=== PATIENT | female | born 1955 | race Caucasian/White ===

== ENCOUNTER 2018-10-24 17:13 | Inpatient (IN) | payer MEDICARE ==
--- NOTE | 2018-10-24 18:20 | ED Physician Chart ---
ED Chief Complaint/HPI - Patient Information Date Seen:: 10/24/18 Time Seen:: 18:00 Chief Complaint:: disruptive long term potential danger History of Present Illness:: last couple days Allergies:: Allergies Allergy/AdvReac Type Severity Reaction Status Date / Time No Known Allergies Allergy Verified 10/24/18 17:49 Vitals:: Vital Signs - 8 hr 10/24/18 17:56 Temp 97.3 F HR 100 RR 18 BP 163/101 O2 Sat % 99 Historian:: Medical Records Review:: Transfer documents Reviewed ED Review of Systems - Review of Systems General/Constitutional: No fever (unreliable ros) ED Past Medical History - Past Medical History Past Medical History: HTN (schizophrenia), Other ED Physical Exam - Physical Examination General/Constitutional: No distress, Ambulatory Head: Atraumatic Eyes: Lids, conjuctiva normal Skin: Nl inspection ENMT: External ears, nose nl Neck: Nontender Respiratory: Nl effort/Exclusion Cardio Vascular: RRR GI: No tenderness/rebounding/guarding Extremities: No tenderness or effusion Neuro/Psych: Alert/oriented Misc: Normal back ED Assessment - Assessment General Assessment: atypical chest pain ED Septic Shock - . Is Septic Shock (SBP<90, OR Lactate>4 mmol\L) present?: No - <6hrs of presentation: Vital Signs: Vital Signs - 8 hr 10/24/18 17:56 Temp 97.3 F HR 100 RR 18 BP 163/101 O2 Sat % 99 ED Reassessment (Disposition) - Patient Disposition Discharge/Transfer:: Acute Care w/in this hosp (needs psych eval and adjustment)
[2018-10-24 18:30] LABS: % BASOPHILS 4.5 % (0.0-2.0); % EOSINOPHILS 1.7 % (0.0-5.0); % LYMPHOCYTES 24.8 % (20.0-50.0); % MONOCYTES 1.5 % (2.0-10.0); % NEUTROPHILS 67.5 % (40.0-80.0); BASOPHILE ABSOLUTE 0.3 Th/cumm (0-0.2); EOSINOPHILE ABSOLUTE 0.1 Th/cmm (0.1-0.4); HEMATOCRIT 42.7 % (41.0-60); HEMOGLOBIN 14.2 gm/dL (12-16); LYMPHOCYTE ABSOLUTE 1.8 Th/cmm (1.5-3.0); MEAN CELL VOLUME 90.6 fl (81-100); MEAN CORPUSCULAR HEMOGLOBIN 30.2 pg (27.0-31.0); MEAN CORPUSCULAR HGB CONC 33.4 pg (28.0-36.0); MONOCYTE ABSOLUTE 0.1 Th/cmm (0.3-1.0); NEUTROPHILE ABSOLUTE 4.9 Th/cmm (1.8-8.0); PLATELET COUNT 157 Th/cmm (150-400); RED BLOOD COUNT 4.71 Mil/cmm (3.80-5.20); RED CELL DISTRIBUTION WIDTH 12.6 % (11.5-20.0); WHITE BLOOD COUNT 7.2 Th/cmm (4.8-10.8)
[2018-10-24 18:48] LABS: ALB/GLOB RATIO 1.7 (1.0-1.8); ALBUMIN 4.1 gm/dL (3.7-5.3); ALKALINE PHOSPHATASE 44 U/L (34-104); ANION GAP 13.6 (7.0-16.0); BILIRUBIN,TOTAL 0.2 mg/dL (0.3-1.0); BUN - UREA NITROGEN 24 mg/dL (7-25); CALCIUM SERUM 9.9 mg/dL (8.6-10.3); CARBON DIOXIDE 25.4 mEq/L (21.0-31.0); CHLORIDE 103 mEq/L (98-107); CREATININE - SERUM 0.9 mg/dL (0.6-1.2); GFR AFRICAN-AMERICAN > 60.0 ml/min (>90); GFR NON AFRICAN-AMERICAN > 60.0 ml/min; GLUCOSE 150 mg/dL (70-105); SGOT 14 U/L (13-39); SGPT/ALT 10 U/L (7-52); SODIUM SERUM 138 mEq/L (136-145); TOTAL PROTEIN,SERUM 6.5 gm/dL (6.0-8.3)
[2018-10-24 20:59] VITALS: BP 161/83
[2018-10-24] MEDS ORDERED: Magnesium Hydroxide (MOM) 30 mL UDC PO PRN (20:59)
[2018-10-24 21:20] LABS: CHOLESTEROL 208 mg/dL (<200); HDL -HIGH DENSITY LIPOPROTEIN 82 mg/dL (23-92); TRIGLYCERIDES 108 mg/dL (<150)
--- NOTE | 2018-10-24 21:32 | History & Physical ---
ADMIT DATE: 10/24/2018 HISTORY OF PRESENT ILLNESS: The patient is a 63-year-old female with long history of hypertension, degenerative joint disease, dementia, and psychosis, admitted to [facility] under Dr. Rayo's service for evaluation and treatment. The patient is a poor historian. No fever, no chills, no chest pain, no shortness of breath. No cough. PAST MEDICAL HISTORY: Significant for hypertension, degenerative joint disease, dementia, and psychosis. PAST SURGICAL HISTORY: No recent surgery. ALLERGIES: None. MEDICATIONS: Follow admission reconciliation. SOCIAL HISTORY: No smoking, no alcohol, no drug. FAMILY HISTORY: Noncontributory. REVIEW OF SYSTEMS: RENAL SYSTEM: No history of chronic renal disorder. CARDIOVASCULAR SYSTEM: She has history of hypertension. ENDOCRINE SYSTEM: No diabetes or thyroid problem. GASTROINTESTINAL SYSTEM: No upper or lower gastrointestinal bleed. NEUROLOGICAL SYSTEM: Seizure disorder. SKELETOMUSCULAR SYSTEM: No muscular dystrophy. HEMATOLOGICAL SYSTEM: No bleeding tendencies. RESPIRATORY SYSTEM: No asthma. GENITOURINARY: No dysuria or hematuria. PHYSICAL EXAMINATION: GENERAL: She is awake, not coherent. VITAL SIGNS: Temperature 98.3, heart rate 86, blood pressure 161/83. HEENT: Normocephalic. Pupils are reactive to light and accommodation. Sclerae clear. NECK: Supple. Negative for lymphadenopathy, JVD or bruit. CHEST: Entry of the air bilaterally normal. No rhonchi or wheezing. HEART: S1, S2 normal. ABDOMEN: Soft, bowel sounds positive. EXTREMITIES: No edema. NEUROLOGIC: He is awake, alert, not fully oriented. No focal muscle deficits. LABORATORY DATA: White blood 7.2, hemoglobin 14.2, hematocrit 42.7, platelets 157. Sodium 138, potassium 4, BUN 24, creatinine 0.9. ASSESSMENT: 1. Hypertension. 2. Degenerative joint disease. 3. Dementia. 4. Insomnia. 5. Psychosis. PLAN: The patient is in the hospital under Dr. Rayo's service. Medical problem addressed during hospitalization is psychosis. Medical problems addressed at discharge are hypertension, history of degenerative joint disease. The patient is medically stable for activity. Thank you, Dr. Rayo for asking me to see your patient. The patient is a full code. JOB# [id number]
[2018-10-25 08:07] LABS: A1C 5.5 % (4.8-5.6)
--- NOTE | 2018-10-25 14:43 | History & Physical ---
ADMIT DATE: 10/24/2018 IDENTIFYING INFORMATION: The patient is a 63-year-old female. CHIEF COMPLAINT: "Get out of here." HISTORY OF PRESENT ILLNESS: The patient with long history of bipolar disorder, dementia, psychosis. The patient was a poor historian. When I talked to her, she does not know her age, she believes she was 62. She reports she has been for a long time. Unable to give information and then out of nowhere asked me to leave. The patient apparently has been trying to leave the place. She reported to the staff. She was hearing voices, telling her to leave. PAST PSYCHIATRIC HISTORY: History of bipolar disorder, dementia, psychosis. MEDICAL HISTORY: Hypertension, degenerative joint disease. ALLERGIES: The patient has no known drug allergy. MEDICATIONS: She has been on Depakote 500 mg twice a day, Neurontin 100 mg 3 times a day, Seroquel 300 mg twice a day. FAMILY AND SOCIAL HISTORY: The patient reports that she has been for a long time. First, she told me she has two children. She said she has no kids. She is not a reliable historian. Unable to tell me how far she went to school, what she did for living. MENTAL STATUS EXAMINATION: The patient is appropriately dressed, not very well groomed. She was uncooperative, confused. She believes she is 62 and in reality she is 63. She was unable to tell me the date, where she is, why she is here. Her long-term memory is poor, she cannot remember her age. Short-term is poor, does not know why she is here, unable to answer questions appropriately, all of suddenly went to the bathroom and asked me to get out of here. Staff report that she told them she was hearing voices, telling her to leave. Her insight about her illness is poor, does not realize she has a problem. Judgment is poor with her psychotic behavior. IMPRESSION: Bipolar disorder with psychosis; dementia. MEDICAL DIAGNOSES: As per medical doctor. Her asset, accepting treatment. Negative poor coping skills. INITIAL TREATMENT PLAN: The patient will be continued on medication, adjust medication as needed. We will do group therapy, milieu therapy, and individual therapy. ESTIMATED LENGTH OF STAY: 3-7 days. DISCHARGE CRITERIA: Feeling better, no longer acting out. After discharge, outpatient treatment. [facility]# [id number]
--- NOTE | 2018-10-25 21:56 | Internal Medicine Prog Note ---
Internal Medicine Subjective - Subjective Service Date: 10/25/18 Patient seen and examined:: with staff (SHE IS CONFUSED) Patient is:: awake, non-verbal, in bed, confused Per staff patient has:: no adverse event Internal Medicine Objective - Results Result Diagrams: 10/24/18 18:24 10/24/18 18:24 Recent Labs: Laboratory Last Values WBC 7.2 Th/cmm (4.8-10.8) 10/24/18 18:24 RBC 4.71 Mil/cmm (3.80-5.20) 10/24/18 18:24 Hgb 14.2 gm/dL (12-16) 10/24/18 18:24 Hct 42.7 % (41.0-60) 10/24/18 18: MCV 90.6 fl (81-100) 10/24/18 18:24 MCH 30.2 pg (27.0-31.0) 10/24/18 18: MCHC Differential 33.4 pg (28.0-36.0) 10/24/18 18: RDW 12.6 % (11.5-20.0) 10/24/18 18:24 Plt Count 157 Th/cmm (150-400) 10/24/18 18:24 MPV 8.1 fl 10/24/18 18:24 Neutrophils % 67.5 % (40.0-80.0) 10/24/18 18:24 Lymphocytes % 24.8 % (20.0-50.0) 10/24/18 18: Monocytes % 1.5 % (2.0-10.0) L 10/24/18 18:24 Eosinophils % 1.7 % (0.0-5.0) 10/24/18 18:24 Basophils % 4.5 % (0.0-2.0) H 10/24/18 18:24 Sodium 138 mEq/L (136-145) 10/24/18 18:24 Potassium 4.0 mEq/L (3.5-5.1) 10/24/18 18:24 Chloride 103 mEq/L (98-107) 10/24/18 18:24 Carbon Dioxide 25.4 mEq/L (21.0-31.0) 10/24/18 18:24 Anion Gap 13.6 (7.0-16.0) 10/24/18 18:24 BUN 24 mg/dL (7-25) 10/24/18 18:24 Creatinine 0.9 mg/dL (0.6-1.2) 10/24/18 18:24 Est GFR ( Amer) > 60.0 ml/min (>90) 10/24/18 18:24 Est GFR (Non-Af Amer) > 60.0 ml/min 10/24/18 18:24 BUN/Creatinine Ratio 26.7 10/24/18 18:24 Glucose 150 mg/dL (70-105) H 10/24/18 18:24 Calcium 9.9 mg/dL (8.6-10.3) 10/24/18 18:24 Total Bilirubin 0.2 mg/dL (0.3-1.0) L 10/24/18 18:24 AST 14 U/L (13-39) 10/24/18 18:24 ALT 10 U/L (7-52) 10/24/18 18:24 Alkaline Phosphatase 44 U/L (34-104) 10/24/18 18:24 Total Protein 6.5 gm/dL (6.0-8.3) 10/24/18 18:24 Albumin 4.1 gm/dL (3.7-5.3) 10/24/18 18:24 Globulin 2.4 gm/dL 10/24/18 18:24 Albumin/Globulin Ratio 1.7 (1.0-1.8) 10/24/18 18:24 Triglycerides 108 mg/dL (<150) 10/24/18 18:24 Cholesterol 208 mg/dL (<200) H 10/24/18 18:24 LDL Cholesterol Direct 96 mg/dL (75-193) 10/24/18 18:24 HDL Cholesterol 82 mg/dL (23-92) 10/24/18 18:24 - Physical Exam Vitals and I&O: Vital Signs Temp 97.8 F 10/25/18 14:00 Pulse 55 10/25/18 14:00 Resp 18 10/25/18 14:00 BP 105/65 10/25/18 14:00 Pulse Ox 95 10/25/18 14:00 Intake & Output 10/25/18 10/25/18 10/26/18 06:59 18:59 06:59 Intake Total 240 240 Output Total 2 Balance 240 238 Intake: Oral 240 240 Output: Urine 2 Other: # Voids 1 Active Medications: Current Medications Acetaminophen (Tylenol) 650 mg PO Q4HR PRN PRN Reason: Mild Pain / Temp above 100 Stop: 12/23/18 20:58 Divalproex Sodium (Depakote Er) 500 mg PO BID [facility]; Protocol Stop: 12/24/18 08:59 Last Admin: 10/25/18 16:45 Dose: 500 mg Gabapentin (Neurontin) 100 mg PO TID [facility] Stop: 12/24/18 08:59 Last Admin: 10/25/18 21:30 Dose: 100 mg Lisinopril (Zestril) 5 mg PO DAILY [facility] Stop: 12/24/18 08:59 Last Admin: 10/25/18 08:54 Dose: 5 mg Lorazepam (Ativan) 0.5 mg PO Q4HR PRN; Protocol PRN Reason: Anxiety Stop: 11/23/18 19:59 Magnesium Hydroxide (Milk Of Magnesia) 30 ml PO HS PRN PRN Reason: Constipation Quetiapine Fumarate (Seroquel) 300 mg PO BID [facility]; Protocol Stop: 12/24/18 08:59 Last Admin: 10/25/18 16:45 Dose: 300 mg Temazepam (Restoril) 15 mg PO HS [facility]; Protocol Stop: 12/24/18 20:59 Last Admin: 10/25/18 21:29 Dose: 15 mg General: demented HEENT: NC/AT, PERRLA, EOMI, anicteric sclerae, throat clear Neck: Supple, No JVD, No thyromegaly, +2 carotid pulse wo bruit Lungs: CTAB Abdomen: soft, non-tender, non-distended Extremities: clear Neurological: no change Internal Medicine Assmt/Plan - Assessment Assessment: 1.HTN. 2.DJD. 3.INSOMNIA. 4.PSYCHOSIS - Plan Plan: CONTINUE ON CURRENT MEDICATION AND DIET
--- NOTE | 2018-10-26 09:17 | Internal Medicine Prog Note ---
Internal Medicine Subjective - Subjective Service Date: 10/26/18 Patient seen and examined:: with staff (SHE IS CONFUSED AND AGITATED SOME TIMES) Patient is:: awake, non-verbal, in bed, confused Per staff patient has:: no adverse event Internal Medicine Objective - Results Result Diagrams: 10/24/18 18:24 10/24/18 18:24 Recent Labs: Laboratory Last Values WBC 7.2 Th/cmm (4.8-10.8) 10/24/18 18:24 RBC 4.71 Mil/cmm (3.80-5.20) 10/24/18 18:24 Hgb 14.2 gm/dL (12-16) 10/24/18 18:24 Hct 42.7 % (41.0-60) 10/24/18 18:24 MCV 90.6 fl (81-100) 10/24/18 18:24 MCH 30.2 pg (27.0-31.0) 10/24/18 18: MCHC Differential 33.4 pg (28.0-36.0) 10/24/18 18:24 RDW 12.6 % (11.5-20.0) 10/24/18 18:24 Plt Count 157 Th/cmm (150-400) 10/24/18 18:24 MPV 8.1 fl 10/24/18 18:24 Neutrophils % 67.5 % (40.0-80.0) 10/24/18 18:24 Lymphocytes % 24.8 % (20.0-50.0) 10/24/18 18: Monocytes % 1.5 % (2.0-10.0) L 10/24/18 18:24 Eosinophils % 1.7 % (0.0-5.0) 10/24/18 18:24 Basophils % 4.5 % (0.0-2.0) H 10/24/18 18:24 Sodium 138 mEq/L (136-145) 10/24/18 18:24 Potassium 4.0 mEq/L (3.5-5.1) 10/24/18 18:24 Chloride 103 mEq/L (98-107) 10/24/18 18:24 Carbon Dioxide 25.4 mEq/L (21.0-31.0) 10/24/18 18:24 Anion Gap 13.6 (7.0-16.0) 10/24/18 18:24 BUN 24 mg/dL (7-25) 10/24/18 18:24 Creatinine 0.9 mg/dL (0.6-1.2) 10/24/18 18:24 Est GFR ( Amer) > 60.0 ml/min (>90) 10/24/18 18:24 Est GFR (Non-Af Amer) > 60.0 ml/min 10/24/18 18:24 BUN/Creatinine Ratio 26.7 10/24/18 18:24 Glucose 150 mg/dL (70-105) H 10/24/18 18:24 Calcium 9.9 mg/dL (8.6-10.3) 10/24/18 18:24 Total Bilirubin 0.2 mg/dL (0.3-1.0) L 10/24/18 18:24 AST 14 U/L (13-39) 10/24/18 18:24 ALT 10 U/L (7-52) 10/24/18 18:24 Alkaline Phosphatase 44 U/L (34-104) 10/24/18 18:24 Total Protein 6.5 gm/dL (6.0-8.3) 10/24/18 18:24 Albumin 4.1 gm/dL (3.7-5.3) 10/24/18 18:24 Globulin 2.4 gm/dL 10/24/18 18:24 Albumin/Globulin Ratio 1.7 (1.0-1.8) 10/24/18 18:24 Triglycerides 108 mg/dL (<150) 10/24/18 18:24 Cholesterol 208 mg/dL (<200) H 10/24/18 18:24 LDL Cholesterol Direct 96 mg/dL (75-193) 10/24/18 18:24 HDL Cholesterol 82 mg/dL (23-92) 10/24/18 18:24 - Physical Exam Vitals and I&O: Vital Signs Temp 97.8 F 10/25/18 14:00 Pulse 55 10/25/18 14:00 Resp 18 10/25/18 14:00 BP 105/65 10/25/18 14:00 Pulse Ox 95 10/25/18 14:00 Intake & Output 10/25/18 10/26/18 10/26/18 18:59 06:59 18:59 Intake Total 480 Output Total 2 Balance 478 Intake: Oral 480 Output: Urine 2 Other: # Voids 2 Active Medications: Current Medications Acetaminophen (Tylenol) 650 mg PO Q4HR PRN PRN Reason: Mild Pain / Temp above 100 Stop: 12/23/18 20:58 Divalproex Sodium (Depakote Er) 500 mg PO BID [facility]; Protocol Stop: 12/24/18 08:59 Last Admin: 10/26/18 08:06 Dose: 500 mg Gabapentin (Neurontin) 100 mg PO TID [facility] Stop: 12/24/18 08:59 Last Admin: 10/26/18 08:06 Dose: 100 mg Lisinopril (Zestril) 5 mg PO DAILY [facility] Stop: 12/24/18 08:59 Last Admin: 10/26/18 08:59 Dose: Not Given Lorazepam (Ativan) 0.5 mg PO Q4HR PRN; Protocol PRN Reason: Anxiety Stop: 11/23/18 19:59 Last Admin: 10/26/18 08:58 Dose: 0.5 mg Magnesium Hydroxide (Milk Of Magnesia) 30 ml PO HS PRN PRN Reason: Constipation Quetiapine Fumarate (Seroquel) 300 mg PO BID [facility]; Protocol Stop: 12/24/18 08:59 Last Admin: 10/26/18 08:06 Dose: 300 mg Temazepam (Restoril) 15 mg PO HS [facility]; Protocol Stop: 12/24/18 20:59 Last Admin: 10/25/18 21:29 Dose: 15 mg General: demented HEENT: NC/AT, PERRLA, EOMI, anicteric sclerae, throat clear Neck: Supple, No JVD, No thyromegaly, +2 carotid pulse wo bruit Lungs: CTAB Abdomen: soft, non-tender, non-distended Extremities: clear Neurological: no change Internal Medicine Assmt/Plan - Assessment Assessment: 1.HTN. 2.DJD. 3.INSOMNIA. 4.PSYCHOSIS - Plan Plan: CONTINUE ON CURRENT MEDICATION AND DIET
--- NOTE | 2018-10-26 16:24 | Progress Notes ---
DATE: 10/26/2018 Case was discussed with staff of the patient, reviewed records. The patient continues to have poor insight. Continues to be unable to make safe plan for self-care, poor historian. Continues to be unpredictable, very irritable, needing redirection, resistant to care. She has been compliant with the medication with no side effects, no sedation, no nausea and no extrapyramidal symptoms. We will continue to work with the patient in group therapy, milieu therapy, adjust the medication as needed. JOB# [id number] VAMSHI
--- NOTE | 2018-10-27 13:41 | Progress Notes ---
DATE: 10/27/2018 Case was discussed with staff of the patient, reviewed records. The patient continues to be confused, rambling speech, unable to make safe plan for self-care, unable to tell me the date, where she is, why she is here, uncooperative at times. She is on a wheelchair. No side effects with the medication, no sedation, no nausea, no extrapyramidal symptoms. We will continue to work with the patient in group therapy, milieu therapy, and adjust medications as needed. [facility]# [id number]
--- NOTE | 2018-10-27 17:28 | Internal Medicine Prog Note ---
Internal Medicine Subjective - Subjective Service Date: 10/27/18 Patient seen and examined:: with staff (SHE IS CONFUSED) Patient is:: awake, non-verbal, in bed, confused Per staff patient has:: no adverse event Internal Medicine Objective - Results Result Diagrams: 10/24/18 18:24 10/24/18 18:24 Recent Labs: Laboratory Last Values WBC 7.2 Th/cmm (4.8-10.8) 10/24/18 18:24 RBC 4.71 Mil/cmm (3.80-5.20) 10/24/18 18:24 Hgb 14.2 gm/dL (12-16) 10/24/18 18:24 Hct 42.7 % (41.0-60) 10/24/18 18: MCV 90.6 fl (81-100) 10/24/18 18:24 MCH 30.2 pg (27.0-31.0) 10/24/18 18: MCHC Differential 33.4 pg (28.0-36.0) 10/24/18 18: RDW 12.6 % (11.5-20.0) 10/24/18 18: Plt Count 157 Th/cmm (150-400) 10/24/18 18:24 MPV 8.1 fl 10/24/18 18:24 Neutrophils % 67.5 % (40.0-80.0) 10/24/18 18:24 Lymphocytes % 24.8 % (20.0-50.0) 10/24/18 18: Monocytes % 1.5 % (2.0-10.0) L 10/24/18 18:24 Eosinophils % 1.7 % (0.0-5.0) 10/24/18 18:24 Basophils % 4.5 % (0.0-2.0) H 10/24/18 18:24 Sodium 138 mEq/L (136-145) 10/24/18 18:24 Potassium 4.0 mEq/L (3.5-5.1) 10/24/18 18:24 Chloride 103 mEq/L (98-107) 10/24/18 18:24 Carbon Dioxide 25.4 mEq/L (21.0-31.0) 10/24/18 18:24 Anion Gap 13.6 (7.0-16.0) 10/24/18 18:24 BUN 24 mg/dL (7-25) 10/24/18 18:24 Creatinine 0.9 mg/dL (0.6-1.2) 10/24/18 18:24 Est GFR ( Amer) > 60.0 ml/min (>90) 10/24/18 18:24 Est GFR (Non-Af Amer) > 60.0 ml/min 10/24/18 18:24 BUN/Creatinine Ratio 26.7 10/24/18 18:24 Glucose 150 mg/dL (70-105) H 10/24/18 18:24 Calcium 9.9 mg/dL (8.6-10.3) 10/24/18 18:24 Total Bilirubin 0.2 mg/dL (0.3-1.0) L 10/24/18 18:24 AST 14 U/L (13-39) 10/24/18 18:24 ALT 10 U/L (7-52) 10/24/18 18:24 Alkaline Phosphatase 44 U/L (34-104) 10/24/18 18:24 Total Protein 6.5 gm/dL (6.0-8.3) 10/24/18 18:24 Albumin 4.1 gm/dL (3.7-5.3) 10/24/18 18:24 Globulin 2.4 gm/dL 10/24/18 18:24 Albumin/Globulin Ratio 1.7 (1.0-1.8) 10/24/18 18:24 Triglycerides 108 mg/dL (<150) 10/24/18 18:24 Cholesterol 208 mg/dL (<200) H 10/24/18 18:24 LDL Cholesterol Direct 96 mg/dL (75-193) 10/24/18 18:24 HDL Cholesterol 82 mg/dL (23-92) 10/24/18 18:24 - Physical Exam Vitals and I&O: Vital Signs Temp 98.0 F 10/27/18 14:00 Pulse 90 10/27/18 14:00 Resp 18 10/27/18 14:00 BP 128/89 10/27/18 14:00 Pulse Ox 97 10/27/18 14:00 Intake & Output 10/26/18 10/27/18 10/27/18 18:59 06:59 18:59 Intake Total 1200 Balance 1200 Intake: Oral 1080 Other 120 Other: # Voids 4 # Bowel Movements 0 Active Medications: Current Medications Acetaminophen (Tylenol) 650 mg PO Q4HR PRN PRN Reason: Mild Pain / Temp above 100 Stop: 12/23/18 20:58 Divalproex Sodium (Depakote Er) 500 mg PO BID [facility]; Protocol Stop: 12/24/18 08:59 Last Admin: 10/27/18 16:37 Dose: 500 mg Gabapentin (Neurontin) 100 mg PO TID [facility] Stop: 12/24/18 08:59 Last Admin: 10/27/18 13:10 Dose: 100 mg Lisinopril (Zestril) 5 mg PO DAILY [facility] Stop: 12/24/18 08:59 Last Admin: 10/27/18 09:58 Dose: 5 mg Lorazepam (Ativan) 0.5 mg PO Q4HR PRN; Protocol PRN Reason: Anxiety Stop: 11/23/18 19:59 Last Admin: 10/26/18 08:58 Dose: 0.5 mg Magnesium Hydroxide (Milk Of Magnesia) 30 ml PO HS PRN PRN Reason: Constipation Quetiapine Fumarate (Seroquel) 300 mg PO BID [facility]; Protocol Stop: 12/24/18 08:59 Last Admin: 10/27/18 16:37 Dose: 300 mg Temazepam (Restoril) 15 mg PO HS [facility]; Protocol Stop: 12/24/18 20:59 Last Admin: 10/26/18 21:08 Dose: 15 mg General: demented HEENT: NC/AT, PERRLA, EOMI, anicteric sclerae, throat clear Neck: Supple, No JVD, No thyromegaly, +2 carotid pulse wo bruit Lungs: CTAB Abdomen: soft, non-tender, non-distended Extremities: clear Neurological: no change Internal Medicine Assmt/Plan - Assessment Assessment: 1.HTN. 2.DJD. 3.INSOMNIA. 4.PSYCHOSIS - Plan Plan: CONTINUE ON CURRENT MEDICATION AND DIET Nutritional Asmnt/Malnutr-PDOC - Dietary Evaluation Malnutrition Findings (Please click <Entered> for more info): Nutritional Asmnt/Malnutrition Start: 10/27/18 14: 37 Text: Status: Complete Freq: Protocol: Document 10/27/18 14:37 YEMUS (Rec: 10/27/18 14:43 THIEN [email or web address] ) Nutritional Asmnt/Malnutrition Patient General Information Nutritional Screening Moderate Risk Diagnosis Psychosis Pertinent Medical Hx/Surgical Hx HTN, Degenerative joint disease, Dementia, Psychosis Subjective Information Pt is a 63[facility]year-old [facility] d/t psychosis. Per Meal/ Nutrition Activity Record, Pt ate 75% meals on 10/26. Per RN, UMANG Delcid relayed message that Pt ate 100% breakfast and lunch today. Pt has no noted HX of DM, will continue to monitor blood glucose level as new labs are performed. May want to consider CCHO diet if glucose level does not trend WNL. HT: 54 WT: 110 LB (50 kg) BMI: 18.88 (Normal) GI: WNL, Flat, Soft, Non- tender BM: Not noted I/O: 1200/Not Noted Skin: WNL, intact Tyron: 22 Diet Order: NA2GM, SYED, Chopped Estimated Energy Needs: ( Geriatric, CBW) 9896-8907 kcals (25-30 kcals/ kg) 50-60 g Pro (1.0-1.2 g/kg) 6080-6135 ml (25-30 ml/kg) Pt is currently eating an estimated 87.5% meals per Meal /Nutrition Activity Record. Dietary is currently providing an estimated 1869 kcals and 75 gm Pro. Per Pt PO intake, this is providing an estimated 1635 kcals and 66 gm Pro, to meet 100% kcal and 100% Pro needs - adequate. Current Diet Order/ Nutrition Support NA2GM, SYED, Chopped Pertinent Medications MOM (PRN) Pertinent Labs 10/24: Glucose 150 Nutritional Hx/Data Height 1.63 m Height (Calculated Centimeters) 162.6 Current Weight (lbs) 49.895 kg Weight (Calculated Kilograms) 49.9 Weight (Calculated Grams) 57735.2 [place] Body Weight 54.7 kg % [place] Body Weight 91 Body Mass Index (BMI) 18.8 Weight Status Approriate GI Symptoms GI Symptoms None Last BM Not noted Skin Integrity/Comment: WNL, intact Tyron: 22 Current %PO Good (75-100%) Estimated Nutritional Goals BEE in Kcals: Using Current wt Calories/Kcals/Kg 25-30 Kcals Calculated 4923-6570 Protein: Using Current wt Protein g/k.0-1.2 Protein Calculated 50-60 Fluid: ml 6723-7515 ml (25-30 ml/kg) Nutritional Problem 1. Problem Problem Altered nutrition related labs Etiology r/t endocrine dysfunction Signs/Symptoms: aeb Glucose 150 Malnutrition Related to Morbid Obesity Malnutrition related to morbid obesity No Intervention/Recommendation Comments 1.Continue with NA2GM, SYED, Chopped diet as ordered. 2.Consider CCHO diet if glucose level does not trend WNL. Expected Outcomes/Goals Expected Outcomes/Goals 1. PO intake to continue to meet 75% of nutritional needs. 2. Monitor PO intake, wt, skin integrity, and nutrition related labs to trend WNL. 3. F/U as low risk in 7 days, 11/03
--- NOTE | 2018-10-28 17:43 | Progress Notes ---
DATE: 10/28/2018 SUBJECTIVE: Case was discussed with staff of the patient, reviewed records. The patient continues to be confused, demented, unable to make safe plan for self-care, unpredictable, impulsive, easily agitated, sleeping better, eating better. No side effects from the medication, no sedation, no nausea, no extrapyramidal symptoms. I will be checking her lab work shows chemistry panel with high blood sugar to low total albumin, high cholesterol and high lipid profile. The rest within normal range. Her CBC showed low monocytes, high basophils. The rest within normal range. No side effects with the medication, no sedation, no nausea, no extrapyramidal symptoms. He was checking his Depakote level. We will continue outpatient group therapy, milieu therapy, and adjust medication as needed. JOB# [id number]
--- NOTE | 2018-10-28 18:48 | Internal Medicine Prog Note ---
Internal Medicine Subjective - Subjective Service Date: 10/28/18 Patient seen and examined:: without staff (SHE IS CONFUSED) Patient is:: awake, non-verbal, in bed, confused Per staff patient has:: no adverse event Internal Medicine Objective - Results Result Diagrams: 10/24/18 18:24 10/24/18 18:24 Recent Labs: Laboratory Last Values WBC 7.2 Th/cmm (4.8-10.8) 10/24/18 18: RBC 4.71 Mil/cmm (3.80-5.20) 10/24/18 18:24 Hgb 14.2 gm/dL (12-16) 10/24/18 18:24 Hct 42.7 % (41.0-60) 10/24/18 18: MCV 90.6 fl (81-100) 10/24/18 18:24 MCH 30.2 pg (27.0-31.0) 10/24/18 18: MCHC Differential 33.4 pg (28.0-36.0) 10/24/18 18: RDW 12.6 % (11.5-20.0) 10/24/18 18: Plt Count 157 Th/cmm (150-400) 10/24/18 18:24 MPV 8.1 fl 10/24/18 18:24 Neutrophils % 67.5 % (40.0-80.0) 10/24/18 18:24 Lymphocytes % 24.8 % (20.0-50.0) 10/24/18 18: Monocytes % 1.5 % (2.0-10.0) L 10/24/18 18: Eosinophils % 1.7 % (0.0-5.0) 10/24/18 18:24 Basophils % 4.5 % (0.0-2.0) H 10/24/18 18:24 Sodium 138 mEq/L (136-145) 10/24/18 18:24 Potassium 4.0 mEq/L (3.5-5.1) 10/24/18 18:24 Chloride 103 mEq/L (98-107) 10/24/18 18:24 Carbon Dioxide 25.4 mEq/L (21.0-31.0) 10/24/18 18:24 Anion Gap 13.6 (7.0-16.0) 10/24/18 18:24 BUN 24 mg/dL (7-25) 10/24/18 18:24 Creatinine 0.9 mg/dL (0.6-1.2) 10/24/18 18:24 Est GFR ( Amer) > 60.0 ml/min (>90) 10/24/18 18:24 Est GFR (Non-Af Amer) > 60.0 ml/min 10/24/18 18:24 BUN/Creatinine Ratio 26.7 10/24/18 18:24 Glucose 150 mg/dL (70-105) H 10/24/18 18:24 Calcium 9.9 mg/dL (8.6-10.3) 10/24/18 18:24 Total Bilirubin 0.2 mg/dL (0.3-1.0) L 10/24/18 18:24 AST 14 U/L (13-39) 10/24/18 18:24 ALT 10 U/L (7-52) 10/24/18 18:24 Alkaline Phosphatase 44 U/L (34-104) 10/24/18 18:24 Total Protein 6.5 gm/dL (6.0-8.3) 10/24/18 18:24 Albumin 4.1 gm/dL (3.7-5.3) 10/24/18 18:24 Globulin 2.4 gm/dL 10/24/18 18:24 Albumin/Globulin Ratio 1.7 (1.0-1.8) 10/24/18 18:24 Triglycerides 108 mg/dL (<150) 10/24/18 18:24 Cholesterol 208 mg/dL (<200) H 10/24/18 18:24 LDL Cholesterol Direct 96 mg/dL (75-193) 10/24/18 18:24 HDL Cholesterol 82 mg/dL (23-92) 10/24/18 18:24 Valproic Acid 89.9 ug/mL (50.0-100.0) 10/28/18 15:05 - Physical Exam Vitals and I&O: Vital Signs Temp 98.0 F 10/28/18 14:00 Pulse 89 10/28/18 14:00 Resp 20 10/28/18 14:00 BP 113/70 10/28/18 14:00 Pulse Ox 97 10/28/18 14:00 Intake & Output 10/27/18 10/28/18 10/28/18 18:59 06:59 18:59 Intake Total 1258 871 5220 Balance 5326 230 5594 Intake: Oral 4708 907 5843 Other: # Voids 3 2 3 # Bowel Movements 0 1 0 Active Medications: Current Medications Acetaminophen (Tylenol) 650 mg PO Q4HR PRN PRN Reason: Mild Pain / Temp above 100 Stop: 12/23/18 20:58 Divalproex Sodium (Depakote Er) 500 mg PO BID [facility]; Protocol Stop: 12/24/18 08:59 Last Admin: 10/28/18 17:23 Dose: 500 mg Gabapentin (Neurontin) 100 mg PO TID [facility] Stop: 12/24/18 08:59 Last Admin: 10/28/18 15:46 Dose: Not Given Lisinopril (Zestril) 5 mg PO DAILY [facility] Stop: 12/24/18 08:59 Last Admin: 10/28/18 08:57 Dose: 5 mg Lorazepam (Ativan) 0.5 mg PO Q4HR PRN; Protocol PRN Reason: Anxiety Stop: 11/23/18 19:59 Last Admin: 10/27/18 21:18 Dose: 0.5 mg Magnesium Hydroxide (Milk Of Magnesia) 30 ml PO HS PRN PRN Reason: Constipation Quetiapine Fumarate (Seroquel) 300 mg PO BID [facility]; Protocol Stop: 12/24/18 08:59 Last Admin: 10/28/18 17:24 Dose: 300 mg Temazepam (Restoril) 15 mg PO HS [facility]; Protocol Stop: 12/24/18 20:59 Last Admin: 10/27/18 21:18 Dose: 15 mg General: demented HEENT: NC/AT, PERRLA, EOMI, anicteric sclerae, throat clear Neck: Supple, No JVD, No thyromegaly, +2 carotid pulse wo bruit Lungs: CTAB Abdomen: soft, non-tender, non-distended Extremities: clear Neurological: no change Internal Medicine Assmt/Plan - Assessment Assessment: 1.HTN. 2.DJD. 3.INSOMNIA. 4.PSYCHOSIS - Plan Plan: CONTINUE ON CURRENT MEDICATION AND DIET Nutritional Asmnt/Malnutr-PDOC - Dietary Evaluation Malnutrition Findings (Please click <Entered> for more info): Nutritional Asmnt/Malnutrition Start: 10/27/18 14: 37 Text: Status: Complete Freq: Protocol: Document 10/27/18 14:37 THIEN (Rec: 10/27/18 14:43 [email or web address] ) Nutritional Asmnt/Malnutrition Patient General Information Nutritional Screening Moderate Risk Diagnosis Psychosis Pertinent Medical Hx/Surgical Hx HTN, Degenerative joint disease, Dementia, Psychosis Subjective Information Pt is a 63-year-old female from retirement admitted on 10/24 d/t psychosis. Per Meal/ Nutrition Activity Record, Pt ate 75% meals on 10/26. Per [facility] relayed message that Pt ate 100% breakfast and lunch today. Pt has no noted HX of DM, will continue to monitor blood glucose level as new labs are performed. May want to consider CCHO diet if glucose level does not trend WNL. HT: 54 WT: 110 LB (50 kg) BMI: 18.88 (Normal) GI: WNL, Flat, Soft, Non- tender BM: Not noted I/O: 1200/Not Noted Skin: WNL, intact Tyron: 22 Diet Order: NA2GM, SYED, Chopped Estimated Energy Needs: ( Geriatric, CBW) 5113-9503 kcals (25-30 kcals/ kg) 50-60 g Pro (1.0-1.2 g/kg) 7219-4347 ml (25-30 ml/kg) Pt is currently eating an estimated 87.5% meals per Meal /Nutrition Activity Record. Dietary is currently providing an estimated 1869 kcals and 75 gm Pro. Per Pt PO intake, this is providing an estimated 1635 kcals and 66 gm Pro, to meet 100% kcal and 100% Pro needs - adequate. Current Diet Order/ Nutrition Support NA2GM, SYED, Chopped Pertinent Medications MOM (PRN) Pertinent Labs 10/24: Glucose 150 Nutritional Hx/Data Height 1.63 m Height (Calculated Centimeters) 162.6 Current Weight (lbs) 49.895 kg Weight (Calculated Kilograms) 49.9 Weight (Calculated Grams) 07685.2 [place] Body Weight 54.7 kg % [place] Body Weight 91 Body Mass Index (BMI) 18.8 Weight Status Approriate GI Symptoms GI Symptoms None Last BM Not noted Skin Integrity/Comment: WNL, intact Tyron: 22 Current %PO Good (75-100%) Estimated Nutritional Goals BEE in Kcals: Using Current wt Calories/Kcals/Kg 25-30 Kcals Calculated 9520-3715 Protein: Using Current wt Protein g/k.0-1.2 Protein Calculated 50-60 Fluid: ml 3736-4840 ml (25-30 ml/kg) Nutritional Problem 1. Problem Problem Altered nutrition related labs Etiology r/t endocrine dysfunction Signs/Symptoms: aeb Glucose 150 Malnutrition Related to Morbid Obesity Malnutrition related to morbid obesity No Intervention/Recommendation Comments 1.Continue with NA2GM, SYED, Chopped diet as ordered. 2.Consider CCHO diet if glucose level does not trend WNL. Expected Outcomes/Goals Expected Outcomes/Goals 1. PO intake to continue to meet 75% of nutritional needs. 2. Monitor PO intake, wt, skin integrity, and nutrition related labs to trend WNL. 3. F/U as low risk in 7 days, 11/03
--- NOTE | 2018-10-29 18:19 | Internal Medicine Prog Note ---
Internal Medicine Subjective - Subjective Service Date: 10/29/18 Patient seen and examined:: with staff (SHE IS BETTER,NOT AGITATED) Patient is:: awake, non-verbal, in bed, confused Per staff patient has:: no adverse event Internal Medicine Objective - Results Result Diagrams: 10/24/18 18:24 10/24/18 18:24 Recent Labs: Laboratory Last Values WBC 7.2 Th/cmm (4.8-10.8) 10/24/18 18: RBC 4.71 Mil/cmm (3.80-5.20) 10/24/18 18:24 Hgb 14.2 gm/dL (12-16) 10/24/18 18: Hct 42.7 % (41.0-60) 10/24/18 18: MCV 90.6 fl (81-100) 10/24/18 18:24 MCH 30.2 pg (27.0-31.0) 10/24/18 18: MCHC Differential 33.4 pg (28.0-36.0) 10/24/18 18: RDW 12.6 % (11.5-20.0) 10/24/18 18:24 Plt Count 157 Th/cmm (150-400) 10/24/18 18: MPV 8.1 fl 10/24/18 18:24 Neutrophils % 67.5 % (40.0-80.0) 10/24/18 18:24 Lymphocytes % 24.8 % (20.0-50.0) 10/24/18 18: Monocytes % 1.5 % (2.0-10.0) L 10/24/18 18: Eosinophils % 1.7 % (0.0-5.0) 10/24/18 18: Basophils % 4.5 % (0.0-2.0) H 10/24/18 18:24 Sodium 138 mEq/L (136-145) 10/24/18 18:24 Potassium 4.0 mEq/L (3.5-5.1) 10/24/18 18:24 Chloride 103 mEq/L (98-107) 10/24/18 18:24 Carbon Dioxide 25.4 mEq/L (21.0-31.0) 10/24/18 18:24 Anion Gap 13.6 (7.0-16.0) 10/24/18 18:24 BUN 24 mg/dL (7-25) 10/24/18 18:24 Creatinine 0.9 mg/dL (0.6-1.2) 10/24/18 18:24 Est GFR ( Amer) > 60.0 ml/min (>90) 10/24/18 18:24 Est GFR (Non-Af Amer) > 60.0 ml/min 10/24/18 18:24 BUN/Creatinine Ratio 26.7 10/24/18 18:24 Glucose 150 mg/dL (70-105) H 10/24/18 18:24 Calcium 9.9 mg/dL (8.6-10.3) 10/24/18 18:24 Total Bilirubin 0.2 mg/dL (0.3-1.0) L 10/24/18 18:24 AST 14 U/L (13-39) 10/24/18 18:24 ALT 10 U/L (7-52) 10/24/18 18:24 Alkaline Phosphatase 44 U/L (34-104) 10/24/18 18:24 Total Protein 6.5 gm/dL (6.0-8.3) 10/24/18 18:24 Albumin 4.1 gm/dL (3.7-5.3) 10/24/18 18:24 Globulin 2.4 gm/dL 10/24/18 18:24 Albumin/Globulin Ratio 1.7 (1.0-1.8) 10/24/18 18:24 Triglycerides 108 mg/dL (<150) 10/24/18 18:24 Cholesterol 208 mg/dL (<200) H 10/24/18 18:24 LDL Cholesterol Direct 96 mg/dL (75-193) 10/24/18 18:24 HDL Cholesterol 82 mg/dL (23-92) 10/24/18 18:24 Valproic Acid 89.9 ug/mL (50.0-100.0) 10/28/18 15:05 - Physical Exam Vitals and I&O: Vital Signs Temp 97.8 F 10/29/18 14:00 Pulse 76 10/29/18 14:00 Resp 20 10/29/18 14:00 BP 114/75 10/29/18 14:00 Pulse Ox 98 10/29/18 14:00 Intake & Output 10/28/18 10/29/18 10/29/18 18:59 06:59 18:59 Intake Total 7910 344 6401 Balance 9080 908 6160 Intake: Oral 4710 112 9795 Other: # Voids 3 1 4 # Bowel Movements 0 1 Active Medications: Current Medications Acetaminophen (Tylenol) 650 mg PO Q4HR PRN PRN Reason: Mild Pain / Temp above 100 Stop: 12/23/18 20:58 Divalproex Sodium (Depakote Er) 500 mg PO BID [facility]; Protocol Stop: 12/24/18 08:59 Last Admin: 10/29/18 16:57 Dose: 500 mg Gabapentin (Neurontin) 100 mg PO TID [facility] Stop: 12/24/18 08:59 Last Admin: 10/29/18 14:37 Dose: 100 mg Lisinopril (Zestril) 5 mg PO DAILY [facility] Stop: 12/24/18 08:59 Last Admin: 10/29/18 08:45 Dose: 5 mg Lorazepam (Ativan) 0.5 mg PO Q4HR PRN; Protocol PRN Reason: Anxiety Stop: 11/23/18 19:59 Last Admin: 10/28/18 22:03 Dose: 0.5 mg Magnesium Hydroxide (Milk Of Magnesia) 30 ml PO HS PRN PRN Reason: Constipation Quetiapine Fumarate (Seroquel) 300 mg PO BID [facility]; Protocol Stop: 12/24/18 08:59 Last Admin: 10/29/18 16:57 Dose: 300 mg Temazepam (Restoril) 15 mg PO HS [facility]; Protocol Stop: 12/24/18 20:59 Last Admin: 10/28/18 20:44 Dose: 15 mg General: demented HEENT: NC/AT, PERRLA, EOMI, anicteric sclerae, throat clear Neck: Supple, No JVD, No thyromegaly, +2 carotid pulse wo bruit Lungs: CTAB Abdomen: soft, non-tender, non-distended Extremities: clear Neurological: no change Internal Medicine Assmt/Plan - Assessment Assessment: 1.HTN. 2.DJD. 3.INSOMNIA. 4.PSYCHOSIS - Plan Plan: CONTINUE ON CURRENT MEDICATION AND DIET Nutritional Asmnt/Malnutr-PDOC - Dietary Evaluation Malnutrition Findings (Please click <Entered> for more info): Nutritional Asmnt/Malnutrition Start: 10/27/18 14: 37 Text: Status: Complete Freq: Protocol: Document 10/27/18 14:37 THIEN (Rec: 10/27/18 14:43 THIEN [email or web address] ) Nutritional Asmnt/Malnutrition Patient General Information Nutritional Screening Moderate Risk Diagnosis Psychosis Pertinent Medical Hx/Surgical Hx HTN, Degenerative joint disease, Dementia, Psychosis Subjective Information Pt is a 63-year-old female from residential admitted on 10/24 d/t psychosis. Per Meal/ Nutrition Activity Record, Pt ate 75% meals on 10/26. Per [employer] relayed message that Pt ate 100% breakfast and lunch today. Pt has no noted HX of DM, will continue to monitor blood glucose level as new labs are performed. May want to consider CCHO diet if glucose level does not trend WNL. HT: 54 WT: 110 LB (50 kg) BMI: 18.88 (Normal) GI: WNL, Flat, Soft, Non- tender BM: Not noted I/O: 1200/Not Noted Skin: WNL, intact Tyron: 22 Diet Order: NA2GM, SYED, Chopped Estimated Energy Needs: ( Geriatric, CBW) 4474-6351 kcals (25-30 kcals/ kg) 50-60 g Pro (1.0-1.2 g/kg) 9661-2931 ml (25-30 ml/kg) Pt is currently eating an estimated 87.5% meals per Meal /Nutrition Activity Record. Dietary is currently providing an estimated 1869 kcals and 75 gm Pro. Per Pt PO intake, this is providing an estimated 1635 kcals and 66 gm Pro, to meet 100% kcal and 100% Pro needs - adequate. Current Diet Order/ Nutrition Support NA2GM, SYED, Chopped Pertinent Medications MOM (PRN) Pertinent Labs 10/24: Glucose 150 Nutritional Hx/Data Height 1.63 m Height (Calculated Centimeters) 162.6 Current Weight (lbs) 49.895 kg Weight (Calculated Kilograms) 49.9 Weight (Calculated Grams) 21271.2 [place] Body Weight 54.7 kg % [place] Body Weight 91 Body Mass Index (BMI) 18.8 Weight Status Approriate GI Symptoms GI Symptoms None Last BM Not noted Skin Integrity/Comment: WNL, intact Tyron: 22 Current %PO Good (75-100%) Estimated Nutritional Goals BEE in Kcals: Using Current wt Calories/Kcals/Kg 25-30 Kcals Calculated 9431-8639 Protein: Using Current wt Protein g/k.0-1.2 Protein Calculated 50-60 Fluid: ml 9866-5528 ml (25-30 ml/kg) Nutritional Problem 1. Problem Problem Altered nutrition related labs Etiology r/t endocrine dysfunction Signs/Symptoms: aeb Glucose 150 Malnutrition Related to Morbid Obesity Malnutrition related to morbid obesity No Intervention/Recommendation Comments 1.Continue with NA2GM, SYED, Chopped diet as ordered. 2.Consider CCHO diet if glucose level does not trend WNL. Expected Outcomes/Goals Expected Outcomes/Goals 1. PO intake to continue to meet 75% of nutritional needs. 2. Monitor PO intake, wt, skin integrity, and nutrition related labs to trend WNL. 3. F/U as low risk in 7 days, 11/03
--- NOTE | 2018-10-30 04:17 | Progress Notes ---
DATE: 10/29/[address] Conte. IDENTIFYING DATA: The patient is a 63-year-old female brought in here with a history of bipolar, dementia and psychosis. She does not know her age, needing a lot of redirections. CURRENT MEDICATIONS: Depakote 500 mg p.o. b.i.d., Neurontin 100 mg p.o. t.i.d., Seroquel 300 mg p.o. b.i.d. with Restoril as needed. Today on [id number] evaluation, the patient is avoidant, disengaged in the interview, refusing at times, confused. MENTAL STATUS EXAMINATION: Disorganized, refusing interview, needing a lot of redirections. ASSESSMENT AND PLAN: History of schizophrenia, needing a lot of simple redirection, unable to formulate a safe plan outside the structured environment. We will continue primary psychiatrist's treatment plan and goals with monitoring and evaluating. JOB# [id number]
--- NOTE | 2018-10-30 18:29 | Internal Medicine Prog Note ---
Internal Medicine Subjective - Subjective Service Date: 10/30/18 Patient seen and examined:: with staff (SHE IS DOING BETTER) Patient is:: awake, non-verbal, in bed, confused Per staff patient has:: no adverse event Internal Medicine Objective - Results Result Diagrams: 10/24/18 18:24 10/24/18 18:24 Recent Labs: Laboratory Last Values WBC 7.2 Th/cmm (4.8-10.8) 10/24/18 18: RBC 4.71 Mil/cmm (3.80-5.20) 10/24/18 18:24 Hgb 14.2 gm/dL (12-16) 10/24/18 18:24 Hct 42.7 % (41.0-60) 10/24/18 18: MCV 90.6 fl (81-100) 10/24/18 18: MCH 30.2 pg (27.0-31.0) 10/24/18 18: MCHC Differential 33.4 pg (28.0-36.0) 10/24/18 18: RDW 12.6 % (11.5-20.0) 10/24/18 18: Plt Count 157 Th/cmm (150-400) 10/24/18 18:24 MPV 8.1 fl 10/24/18 18:24 Neutrophils % 67.5 % (40.0-80.0) 10/24/18 18:24 Lymphocytes % 24.8 % (20.0-50.0) 10/24/18 18: Monocytes % 1.5 % (2.0-10.0) L 10/24/18 18: Eosinophils % 1.7 % (0.0-5.0) 10/24/18 18: Basophils % 4.5 % (0.0-2.0) H 10/24/18 18:24 Sodium 138 mEq/L (136-145) 10/24/18 18:24 Potassium 4.0 mEq/L (3.5-5.1) 10/24/18 18:24 Chloride 103 mEq/L (98-107) 10/24/18 18:24 Carbon Dioxide 25.4 mEq/L (21.0-31.0) 10/24/18 18:24 Anion Gap 13.6 (7.0-16.0) 10/24/18 18:24 BUN 24 mg/dL (7-25) 10/24/18 18:24 Creatinine 0.9 mg/dL (0.6-1.2) 10/24/18 18:24 Est GFR ( Amer) > 60.0 ml/min (>90) 10/24/18 18:24 Est GFR (Non-Af Amer) > 60.0 ml/min 10/24/18 18:24 BUN/Creatinine Ratio 26.7 10/24/18 18:24 Glucose 150 mg/dL (70-105) H 10/24/18 18:24 Calcium 9.9 mg/dL (8.6-10.3) 10/24/18 18:24 Total Bilirubin 0.2 mg/dL (0.3-1.0) L 10/24/18 18:24 AST 14 U/L (13-39) 10/24/18 18:24 ALT 10 U/L (7-52) 10/24/18 18:24 Alkaline Phosphatase 44 U/L (34-104) 10/24/18 18:24 Total Protein 6.5 gm/dL (6.0-8.3) 10/24/18 18:24 Albumin 4.1 gm/dL (3.7-5.3) 10/24/18 18:24 Globulin 2.4 gm/dL 10/24/18 18:24 Albumin/Globulin Ratio 1.7 (1.0-1.8) 10/24/18 18:24 Triglycerides 108 mg/dL (<150) 10/24/18 18:24 Cholesterol 208 mg/dL (<200) H 10/24/18 18:24 LDL Cholesterol Direct 96 mg/dL (75-193) 10/24/18 18:24 HDL Cholesterol 82 mg/dL (23-92) 10/24/18 18:24 Valproic Acid 89.9 ug/mL (50.0-100.0) 10/28/18 15:05 - Physical Exam Vitals and I&O: Vital Signs Temp 97.4 F 10/30/18 15:06 Pulse 96 10/30/18 15:06 Resp 20 10/30/18 15:06 BP 96/61 10/30/18 15:06 Pulse Ox 95 08/25/19 15:06 Intake & Output 10/29/18 10/30/18 10/30/18 18:59 06:59 18:59 Intake Total 1000 480 Balance 1000 480 Intake: Oral 1000 480 Other: # Voids 4 2 # Bowel Movements 1 Active Medications: Current Medications Acetaminophen (Tylenol) 650 mg PO Q4HR PRN PRN Reason: Mild Pain / Temp above 100 Stop: 12/23/18 20:58 Divalproex Sodium (Depakote Er) 500 mg PO BID [facility]; Protocol Stop: 12/24/18 08:59 Last Admin: 10/30/18 17:36 Dose: 500 mg Gabapentin (Neurontin) 100 mg PO TID [facility] Stop: 12/24/18 08:59 Last Admin: 10/30/18 13:30 Dose: 100 mg Lisinopril (Zestril) 5 mg PO DAILY [facility] Stop: 12/24/18 08:59 Last Admin: 10/30/18 08:44 Dose: Not Given Lorazepam (Ativan) 0.5 mg PO Q4HR PRN; Protocol PRN Reason: Anxiety Stop: 11/23/18 19:59 Last Admin: 10/28/18 22:03 Dose: 0.5 mg Magnesium Hydroxide (Milk Of Magnesia) 30 ml PO HS PRN PRN Reason: Constipation Quetiapine Fumarate (Seroquel) 300 mg PO BID [facility]; Protocol Stop: 12/24/18 08:59 Last Admin: 10/30/18 17:36 Dose: 300 mg Temazepam (Restoril) 15 mg PO HS [facility]; Protocol Stop: 12/24/18 20:59 Last Admin: 10/29/18 21:04 Dose: 15 mg General: demented HEENT: NC/AT, PERRLA, EOMI, anicteric sclerae, throat clear Neck: Supple, No JVD, No thyromegaly, +2 carotid pulse wo bruit Lungs: CTAB Abdomen: soft, non-tender, non-distended Extremities: clear Neurological: no change Internal Medicine Assmt/Plan - Assessment Assessment: 1.HTN. 2.DJD. 3.INSOMNIA. 4.PSYCHOSIS - Plan Plan: CONTINUE ON CURRENT MEDICATION AND DIET Nutritional Asmnt/Malnutr-PDOC - Dietary Evaluation Malnutrition Findings (Please click <Entered> for more info): Nutritional Asmnt/Malnutrition Start: 10/27/18 14: 37 Text: Status: Complete Freq: Protocol: Document 10/27/18 14:37 THIEN (Rec: 10/27/18 14:43 THIEN [email or web address] ) Nutritional Asmnt/Malnutrition Patient General Information Nutritional Screening Moderate Risk Diagnosis Psychosis Pertinent Medical Hx/Surgical Hx HTN, Degenerative joint disease, Dementia, Psychosis Subjective Information Pt is a 63-year-old female from [facility] admitted on 10/24 d/t psychosis. Per Meal/ Nutrition Activity Record, Pt ate 75% meals on 10/26. Per [facility]NA relayed message that Pt ate 100% breakfast and lunch today. Pt has no noted HX of DM, will continue to monitor blood glucose level as new labs are performed. May want to consider CCHO diet if glucose level does not trend WNL. HT: 54 WT: 110 LB (50 kg) BMI: 18.88 (Normal) GI: WNL, Flat, Soft, Non- tender BM: Not noted I/O: 1200/Not Noted Skin: WNL, intact Tyron: 22 Diet Order: NA2GM, SYED, Chopped Estimated Energy Needs: ( Geriatric, CBW) 0020-5926 kcals (25-30 kcals/ kg) 50-60 g Pro (1.0-1.2 g/kg) 7509-8948 ml (25-30 ml/kg) Pt is currently eating an estimated 87.5% meals per Meal /Nutrition Activity Record. Dietary is currently providing an estimated 1869 kcals and 75 gm Pro. Per Pt PO intake, this is providing an estimated 1635 kcals and 66 gm Pro, to meet 100% kcal and 100% Pro needs - adequate. Current Diet Order/ Nutrition Support NA2GM, SYED, Chopped Pertinent Medications MOM (PRN) Pertinent Labs 10/24: Glucose 150 Nutritional Hx/Data Height 1.63 m Height (Calculated Centimeters) 162.6 Current Weight (lbs) 49.895 kg Weight (Calculated Kilograms) 49.9 Weight (Calculated Grams) 54104.2 [place] Body Weight 54.7 kg % [place] Body Weight 91 Body Mass Index (BMI) 18.8 Weight Status Approriate GI Symptoms GI Symptoms None Last BM Not noted Skin Integrity/Comment: WNL, intact Tyron: 22 Current %PO Good (75-100%) Estimated Nutritional Goals BEE in Kcals: Using Current wt Calories/Kcals/Kg 25-30 Kcals Calculated 4415-4465 Protein: Using Current wt Protein g/k.0-1.2 Protein Calculated 50-60 Fluid: ml 3856-1027 ml (25-30 ml/kg) Nutritional Problem 1. Problem Problem Altered nutrition related labs Etiology r/t endocrine dysfunction Signs/Symptoms: aeb Glucose 150 Malnutrition Related to Morbid Obesity Malnutrition related to morbid obesity No Intervention/Recommendation Comments 1.Continue with NA2GM, SYED, Chopped diet as ordered. 2.Consider CCHO diet if glucose level does not trend WNL. Expected Outcomes/Goals Expected Outcomes/Goals 1. PO intake to continue to meet 75% of nutritional needs. 2. Monitor PO intake, wt, skin integrity, and nutrition related labs to trend WNL. 3. F/U as low risk in 7 days, 11/03
--- NOTE | 2018-10-31 04:03 | Progress Notes ---
DATE: 10/30/[address] Conte. Overnight nursing staff reported that the patient mostly focuses about smoke breaks. Today on [id number] evaluation, the patient is easily angered upon approach, dismisses the interview, anger and then starts asking for a cigarette smoke. MENTAL STATUS EXAMINATION: Disorganized, refusing interview. ASSESSMENT AND PLAN: History of schizophrenia, needs a lot of redirection. We will continue with primary psychiatrist's treatment plan and goals. One of the medications, which include Seroquel, no side effects of the medications endorsed or observed. JOB# [id number]
--- NOTE | 2018-10-31 13:21 | Discharge Summary ---
DATE OF DISCHARGE: 10/31/2018 IDENTIFYING INFORMATION: The patient is a 63-year-old female. CHIEF COMPLAINT: "Get out of here." HISTORY OF PRESENT ILLNESS: The patient with long history of bipolar disorder, dementia, psychosis. The patient was a poor historian. She does not know her age, she believes that she was 62, she has been for a long time. Unable to give information, out of nowhere she asked me to leave and went to the bathroom. The patient has been trying to leave the place. She reported to the staff. She was hearing voices telling her to leave. History of bipolar disorder, dementia, psychosis, hypertension, degenerative joint disease. ALLERGIES: She has no known drug allergies. COURSE IN THE HOSPITAL: The patient on current medications, Depakote 500 mg twice a day, Neurontin 300 mg 3 times a day, Seroquel 300 mg twice a day. The patient diagnosed with bipolar disorder with psychosis and dementia. The patient was continued with Depakote as she was not taking medication prior to admission and gabapentin, lisinopril, and Seroquel 300 mg twice a day and Vistaril. The patient progressively got better. She was responding better to redirection. She was continued with her medication for blood pressure, lisinopril. So, as she improved and she was going back to [place], we thought she could be discharged to a lesser level of care. FINAL DIAGNOSES: Bipolar disorder with psychosis; dementia. MEDICAL DIAGNOSES: As per the medical doctor. The patient will follow up with the psychiatrist, primary care physician and a therapist at [place]. EXPECTED OUTCOME: Stable if the patient complies with the above. [facility]# [id number]
== END 2018-10-31 16:15 | DRG 885 ==
LOC: ER 17:13 → GERO2 18:55
PROVIDERS: ADMIT Psychiatry & Neurology Psychiatry; ATTEND Psychiatry & Neurology Psychiatry
DX: F31.9 Bipolar disorder, unspecified (principal); I10 Essential (primary) hypertension; F20.9 Schizophrenia, unspecified; R07.89 Other chest pain; M19.90 Unspecified osteoarthritis, unspecified site; F03.90 Unspecified dementia, unspecified severity, without behavioral disturbance, psychotic disturbance, mood disturbance, and anxiety; F29 Unspecified psychosis not due to a substance or known physiological condition; G47.00 Insomnia, unspecified
CPT/HCPCS: 36415-UA; 80053-TC; 80061-TC; 80164-TC; 83036-90; 85025-TC; Z7610

== ENCOUNTER 2019-04-17 18:58 | Inpatient (IN) | payer MEDICARE, MEDICAID ==
[2019-04-17 23:47] VITALS: BP 140/97
[2019-04-17] MEDS ORDERED: Magnesium Hydroxide (MOM) 30 mL UDC PO PRN (23:49)
[2019-04-17] MEDS ORDERED: Maalox 30 mL Cup PO PRN (23:49)
[2019-04-18] MEDS: Multivitamin Tab PO SCH (08:59)
--- NOTE | 2019-04-18 12:03 | History & Physical ---
ADMIT DATE: 04/17/2019 IDENTIFYING INFORMATION: The patient is a 63-year-old female. CHIEF COMPLAINT: The patient is rambling. HISTORY OF PRESENT ILLNESS: The patient was sent from [place] yesterday. The patient was claimed by [facility], signed a voluntary. The patient has been agitated, aggressive with anger outbursts. The patient with history of bipolar disorder as well as dementia and psychosis. When I tried talked to her, the patient was rambling, unable to participate in meaningful conversation or make safe plan for self-care. She believes she is 18 years of age, unpredictable, impulsive. PAST PSYCHIATRIC HISTORY: The patient has prior hospitalization here back in 10/2018 for similar situation. She was very aggressive and irritable at this time with a history of bipolar disorder and dementia. MEDICAL HISTORY: The patient with a history of dementia, hypertension, osteoarthritis, peripheral neuropathy, dysphagia. The patient can ambulate without assistance. ALLERGIES: She has no known drug allergy. MEDICATIONS: The patient has been on Depakote 250 mg 3 times a day, gabapentin 100 mg 3 times a day and Seroquel 350 mg twice a day. FAMILY AND SOCIAL HISTORY: The patient has been for a long time and on previous admission she said she has 2 children, but she has no kids. She is still not a reliable historian, unable to give much information. MENTAL STATUS EXAMINATION: The patient is appropriately dressed, not very groomed. She looked disheveled. She was intrusive. She was alert, rambling. She believes she is 18 years of age. Unable to give me her age, where she is, why she is here. She has been acting erratic, easily agitated. Her sleep and appetite varies. When asked about suicide and homicide, she would not answer. Her long and short term memory is poor; however, she used to be psychotic, demented. Her insight and judgment is impaired. IMPRESSION: Bipolar disorder with psychosis; dementia. MEDICAL DIAGNOSES: As per medical doctor. Her assets, she is accepting the treatment. Negative poor coping skills. INITIAL TREATMENT PLAN: The patient will be continued with her medication. We will do group therapy, milieu therapy and individual therapy. ESTIMATED LENGTH OF STAY: 3-7 days. DISCHARGE CRITERIA: Decreasing psychosis after discharge, outpatient treatment. JOB# [id number] VAMSHI
--- NOTE | 2019-04-18 21:45 | History & Physical ---
ADMIT DATE: 04/17/2019 CHIEF COMPLAINT: Bipolar disorder. HISTORY OF PRESENT ILLNESS: The patient is a 63-year-old female with long history of hypertension, COPD, dementia, bipolar disorder, admitted to [facility] under Dr. Conte's service. The patient denies any chest pain, shortness of breath, nausea, vomiting, fever or chills. PAST MEDICAL HISTORY: Significant for hypertension, COPD, degenerative joint disease, dementia and bipolar disorder. PAST SURGICAL HISTORY: No recent surgery. ALLERGIES: None. MEDICATIONS: Follow admission reconciliation. SOCIAL HISTORY: She is a chronic smoker. No alcohol, no drug. FAMILY HISTORY: Noncontributory. REVIEW OF SYSTEMS: IMMUNO SYSTEM: No history of chronic immuno disorder. CARDIOVASCULAR SYSTEM: She has history of hypertension. ENDOCRINE SYSTEM: No diabetes or thyroid problem. GASTROINTESTINAL SYSTEM: No upper or lower gastrointestinal bleed. NEUROLOGICAL SYSTEM: No seizure disorders. SKELETOMUSCULAR SYSTEM: No muscular dystrophy. HEMATOLOGICAL SYSTEM: No bleeding tendency. RESPIRATORY SYSTEM: She has COPD. GENITOURINARY SYSTEM: No dysuria or hematuria. PHYSICAL EXAMINATION: GENERAL: She is awake, alert, not coherent. VITAL SIGNS: Temperature 97.8, heart rate 91, blood pressure 119/71. HEENT: Normocephalic. Pupils are equal to light and accommodation. Sclerae clear. NECK: Supple. Negative for lymphadenopathy, JVD or bruit. CHEST: Entry of air bilaterally mildly diminished. No wheezing. HEART: S1, S2 normal. No gallop rhythm. ABDOMEN: Soft, bowel sounds positive. EXTREMITIES: No edema. NEUROLOGICAL: She is awake, alert, no focal muscle deficit. ASSESSMENT: 1. Hypertension. 2. Chronic obstructive pulmonary disease. 3. Dementia. 4. Bipolar disorder. PLAN: The patient is in the hospital under Dr. Conte's service. Problem to be addressed during hospitalization is bipolar disorder. Medical problem addressed at discharge are hypertension, cessation of smoking. The patient is medically stable for activity. Thank you, Dr. Conte, for asking me to see your patient. The patient will follow up with primary care physician on discharge. Patient is a full code. JOB# [id number]
[2019-04-19] MEDS: Multivitamin Tab PO SCH (09:33)
--- NOTE | 2019-04-19 19:09 | Progress Notes ---
DATE: 04/19/2019 SUBJECTIVE: The patient is able to express herself, but she is rambling and hyperverbal, continues to be unable to make safe plan for self-care. Continues to be unpredictable, impulsive, needing redirection. She is compliant with the medication with no side effects, no sedation, no nausea, no extrapyramidal symptoms. She is on Seroquel and Depakote and continue outpatient group therapy, milieu therapy, and adjust medications as needed. JOB# [id number]
--- NOTE | 2019-04-19 20:47 | Internal Medicine Prog Note ---
Internal Medicine Subjective - Subjective Service Date: 04/19/19 Patient seen and examined:: with staff (SHE IS DOING WELL) Patient is:: awake, verbal, in bed, talking, confused Per staff patient has:: no adverse event Internal Medicine Objective - Physical Exam Vitals and I&O: Vital Signs Temp 97.8 F 04/19/19 20:00 Pulse 61 04/19/19 20:00 Resp 18 04/19/19 20:00 BP 119/74 04/19/19 20:00 Pulse Ox 95 04/19/19 20:00 Intake & Output 04/19/19 04/19/19 04/20/19 06:59 18:59 06:59 Intake Total 120 1200 Balance 120 1200 Intake: Oral 120 1200 Other: # Voids 3 # Bowel Movements 0 1 Stool Characteristics Formed Active Medications: Current Medications Acetaminophen (Tylenol) 650 mg PO Q4HR PRN PRN Reason: Mild Pain (1-3) Stop: 06/17/19 00:53 Acetaminophen (Tylenol) 650 mg PO Q4HR PRN PRN Reason: TEMP ABOVE 100 Stop: 06/18/19 14:22 Al Hydrox/Mg Hydrox/Simethicone (Maalox) 30 ml PO Q4HR PRN PRN Reason: GI DISTRESS Stop: 06/16/19 23:48 Divalproex Sodium (Depakote Er) 250 mg PO TID [facility] Stop: 06/18/19 08:59 Last Admin: 04/19/19 13:50 Dose: 250 mg Gabapentin (Neurontin) 100 mg PO TID [facility] Stop: 06/17/19 08:59 Last Admin: 04/19/19 13:50 Dose: 100 mg Lisinopril (Zestril) 5 mg PO DAILY [facility] Stop: 06/17/19 08:59 Last Admin: 04/19/19 09:32 Dose: Not Given Lorazepam (Ativan) 0.5 mg PO Q4HR PRN; Protocol PRN Reason: Anxiety Stop: 05/17/19 23:48 Magnesium Hydroxide (Milk Of Magnesia) 30 ml PO HS PRN PRN Reason: Constipation Multivitamins/Vitamin C (Theragran) 1 tab PO DAILY [facility] Stop: 06/17/19 08:59 Last Admin: 04/19/19 09:33 Dose: 1 tab Quetiapine Fumarate 300 mg/ (Quetiapine Fumarate 50 mg) 350 mg PO BID X[facility]IER Stop: 06/18/19 08:59 Last Admin: 04/19/19 16:34 Dose: 350 mg Zolpidem Tartrate (Ambien) 5 mg PO HS PRN PRN Reason: Insomnia Stop: 06/16/19 23:48 General: demented HEENT: NC/AT, PERRLA, EOMI, anicteric sclerae, throat clear Neck: Supple, No JVD, No thyromegaly, +2 carotid pulse wo bruit, No LAD, + JVD Lungs: CTAB Cardiovascular: RRR, Normal S1, Normal S2, without murmur Abdomen: soft, non-tender, non-distended Extremities: clear Neurological: no change, alert Internal Medicine Assmt/Plan - Assessment Assessment: 1.HTN. 2.COPD. 3.DEMENTIA. 4.BIPOLAR DISORDER - Plan Plan: CONTINUE ON CURRENT MEDICATION AND DIET Nutritional Asmnt/Malnutr-PDOC - Dietary Evaluation Malnutrition Findings (Please click <Entered> for more info): Nutritional Asmnt/Malnutrition Start: 04/18/19 14: 21 Text: Status: Complete Freq: Protocol: Document 04/18/19 14:21 THIEN (Rec: 04/18/19 14:24 THIEN [email or web address]) Nutritional Asmnt/Malnutrition Patient General Information Nutritional Screening High Risk Diagnosis Psychosis Pertinent Medical Hx/Surgical Hx HTN, Dementia, Osteoarthritis, Peripheral neuropathy, Dysphagia Subjective Information Pt is a 63-year-old female admitted on 04/17 d/t agitation , aggressiveness, and angry outbursts. Pt assessed as high nutritional risk d/t BMI <18.5 (16.14). Pt ate 75% breakfast and lunch today according to OPERATIONS MANAGER. Pt was in the community room watching the [employer] at time of visit. Will monitor PO intake and add supplement as necessary. Recommend adding weekly weight check, weight gain trending toward IBW preferred. Anthropometrics HT: 54 WT: 94 LB (42.73 kg) BMI: 16.14 (Underweight) GI/ Skin Integrity GI: WNL, Soft, Flat, Non- tender BM: Not Noted I/O: Not Noted Skin: WNL, Intact Tyron: 21 Diet Order: Mechanical Soft, SYED Estimated Energy Needs: ( Geriatric, CBW) 0034-3552 kcals (30-35 kcals/ kg) 50-55g Pro (1.2-1.3 g/kg) 1786-2615 ml (30-35 ml/kg) Current Diet Order/ Nutrition Support Mechanical Soft, SYED Pertinent Medications Maalox (PRN), MOM (PRN), Theragran Pertinent Labs 04/17: Glucose 103, BUN/Cr 32/1 .09, GFR 54, T Protein 3.1, Tags 227, Chol 254, LDL 136 Nutritional Hx/Data Height 1.63 m Height (Calculated Centimeters) 162.6 Current Weight (lbs) 42.638 kg Weight (Calculated Kilograms) 42.6 Weight (Calculated Grams) 82138.7 [place] Body Weight 120 LB (54.55 kg) % [place] Body Weight 78 Body Mass Index (BMI) 16.1 Weight Status Underweight GI Symptoms Skin Integrity/Comment: Skin: WNL, Intact Tyron: 21 Estimated Nutritional Goals BEE in Kcals: Using Current wt Calories/Kcals/Kg 30-35 Kcals Calculated 2827-6367 Protein: Using Current wt Protein g/k.2-1.3 Protein Calculated 50-55 Fluid: ml 5380-1008 ml (30-35 ml/kg) Nutritional Problem 1. Problem Problem Underweight Etiology r/t consistent energy underconsumption Signs/Symptoms: aeb BMI <18.5 (16.14). Malnutrition Related to Morbid Obesity Malnutrition related to morbid obesity No Intervention/Recommendation Comments 1. Continue Mechanical Soft, SYED diet as tolerated. 2. Weekly weights. 3. Nurse to offer snacks every 2 hours. Expected Outcomes/Goals Expected Outcomes/Goals 1.PO intake to continue to meet 75% of estimated nutritional needs. 2.Monitor PO intake, wt, nutrition related labs, and skin integrity. 3.Gradual weight gain, 0.5-1 LB/week, trending towards IBW. 4.F/U as high risk in 2-3 days , 04/20-04/21.
[2019-04-20] MEDS: Multivitamin Tab PO SCH (09:24)
--- NOTE | 2019-04-20 16:39 | Progress Notes ---
DATE: 04/20/2019 This is a 63-year-old female, currently in the hospital, sent from [place], agitated, aggressive outbursts, history of bipolar versus dementia, not making much sense, very distracted on exam, pacing back and forth. Per nursing staff, the patient distracted, impulsive, unpredictable, needing a lot of redirection. Medications were noted, taking dosing of Seroquel and Depakote. We will continue inpatient monitoring. JOB# [id number]
--- NOTE | 2019-04-20 22:11 | Internal Medicine Prog Note ---
Internal Medicine Subjective - Subjective Service Date: 04/20/19 Patient seen and examined:: without staff (SHE IS DOING WELL) Patient is:: awake, verbal, in bed, talking, confused Per staff patient has:: no adverse event Internal Medicine Objective - Physical Exam Vitals and I&O: Vital Signs Temp 98.5 F 04/20/19 20:32 Pulse 119 04/20/19 20:32 Resp 20 04/20/19 20:32 BP 134/81 04/20/19 20:32 Pulse Ox 98 04/20/19 20:32 Intake & Output 04/20/19 04/20/19 04/21/19 06:59 18:59 06:59 Intake Total 120 900 120 Balance 120 900 120 Intake: Oral 120 900 120 Other: # Voids 3 3 2 # Bowel Movements 1 0 Stool Characteristics Formed Active Medications: Current Medications Acetaminophen (Tylenol) 650 mg PO Q4HR PRN PRN Reason: Mild Pain (1-3) Stop: 06/17/19 00:53 Acetaminophen (Tylenol) 650 mg PO Q4HR PRN PRN Reason: TEMP ABOVE 100 Stop: 06/18/19 14:22 Al Hydrox/Mg Hydrox/Simethicone (Maalox) 30 ml PO Q4HR PRN PRN Reason: GI DISTRESS Stop: 06/16/19 23:48 Divalproex Sodium (Depakote Er) 250 mg PO TID [facility] Stop: 06/18/19 08:59 Last Admin: 04/20/19 20:38 Dose: 250 mg Gabapentin (Neurontin) 100 mg PO TID [facility] Stop: 06/17/19 08:59 Last Admin: 04/20/19 20:38 Dose: 100 mg Lisinopril (Zestril) 5 mg PO DAILY [facility] Stop: 06/17/19 08:59 Last Admin: 04/20/19 09:24 Dose: 5 mg Lorazepam (Ativan) 0.5 mg PO Q4HR PRN; Protocol PRN Reason: Anxiety Stop: 05/17/19 23:48 Last Admin: 04/20/19 09:24 Dose: 0.5 mg Magnesium Hydroxide (Milk Of Magnesia) 30 ml PO HS PRN PRN Reason: Constipation Multivitamins/Vitamin C (Theragran) 1 tab PO DAILY [facility] Stop: 06/17/19 08:59 Last Admin: 04/20/19 09:24 Dose: 1 tab Quetiapine Fumarate 300 mg/ (Quetiapine Fumarate 50 mg) 350 mg PO BID [facility] Stop: 06/18/19 08:59 Last Admin: 04/20/19 17:10 Dose: 350 mg Zolpidem Tartrate (Ambien) 5 mg PO HS PRN PRN Reason: Insomnia Stop: 06/16/19 23:48 Last Admin: 04/20/19 20:38 Dose: 5 mg General: demented HEENT: NC/AT, PERRLA, EOMI, anicteric sclerae, throat clear Neck: Supple, No JVD, No thyromegaly, +2 carotid pulse wo bruit, No LAD, + JVD Lungs: CTAB Cardiovascular: RRR, Normal S1, Normal S2, without murmur Abdomen: soft, non-tender, non-distended Extremities: clear Neurological: no change, alert Internal Medicine Assmt/Plan - Assessment Assessment: 1.HTN. 2.COPD. 3.DEMENTIA. 4.BIPOLAR DISORDER - Plan Plan: CONTINUE ON CURRENT MEDICATION AND DIET Nutritional Asmnt/Malnutr-PDOC - Dietary Evaluation Malnutrition Findings (Please click <Entered> for more info): Nutritional Asmnt/Malnutrition Start: 04/18/19 14: 21 Text: Status: Complete Freq: Protocol: Document 04/18/19 14:21 THIEN (Rec: 04/18/19 14:24 THIEN [id number]) Nutritional Asmnt/Malnutrition Patient General Information Nutritional Screening High Risk Diagnosis Psychosis Pertinent Medical Hx/Surgical Hx HTN, Dementia, Osteoarthritis, Peripheral neuropathy, Dysphagia Subjective Information Pt is a 63-year-old female admitted on 04/17 d/t agitation , aggressiveness, and angry outbursts. Pt assessed as high nutritional risk d/t BMI <18.5 (16.14). Pt ate 75% breakfast and lunch today according to BLINDSTITCH LAPEL PADDER. Pt was in the community room watching the [employer] game at time of visit. Will monitor PO intake and add supplement as necessary. Recommend adding weekly weight check, weight gain trending toward IBW preferred. Anthropometrics HT: 54 WT: 94 LB (42.73 kg) BMI: 16.14 (Underweight) GI/ Skin Integrity GI: WNL, Soft, Flat, Non- tender BM: Not Noted I/O: Not Noted Skin: WNL, Intact Tyron: 21 Diet Order: Mechanical Soft, SYED Estimated Energy Needs: ( Geriatric, CBW) 4219-2963 kcals (30-35 kcals/ kg) 50-55g Pro (1.2-1.3 g/kg) 6720-4290 ml (30-35 ml/kg) Current Diet Order/ Nutrition Support Mechanical Soft, SYED Pertinent Medications Maalox (PRN), MOM (PRN), Theragran Pertinent Labs 04/17: Glucose 103, BUN/Cr 32/1 .09, GFR 54, T Protein 3.1, Tags 227, Chol 254, LDL 136 Nutritional Hx/Data Height 1.63 m Height (Calculated Centimeters) 162.6 Current Weight (lbs) 42.638 kg Weight (Calculated Kilograms) 42.6 Weight (Calculated Grams) 82672.7 [place] Body Weight 120 LB (54.55 kg) % [place] Body Weight 78 Body Mass Index (BMI) 16.1 Weight Status Underweight GI Symptoms Skin Integrity/Comment: Skin: WNL, Intact Tyron: 21 Estimated Nutritional Goals BEE in Kcals: Using Current wt Calories/Kcals/Kg 30-35 Kcals Calculated 3625-6945 Protein: Using Current wt Protein g/k.2-1.3 Protein Calculated 50-55 Fluid: ml 6392-8840 ml (30-35 ml/kg) Nutritional Problem 1. Problem Problem Underweight Etiology r/t consistent energy underconsumption Signs/Symptoms: aeb BMI <18.5 (16.14). Malnutrition Related to Morbid Obesity Malnutrition related to morbid obesity No Intervention/Recommendation Comments 1. Continue Mechanical Soft, SYED diet as tolerated. 2. Weekly weights. 3. Nurse to offer snacks every 2 hours. Expected Outcomes/Goals Expected Outcomes/Goals 1.PO intake to continue to meet 75% of estimated nutritional needs. 2.Monitor PO intake, wt, nutrition related labs, and skin integrity. 3.Gradual weight gain, 0.5-1 LB/week, trending towards IBW. 4.F/U as high risk in 2-3 days , 04/20-04/21.
[2019-04-21] MEDS: Multivitamin Tab PO SCH (08:13)
--- NOTE | 2019-04-21 16:41 | Progress Notes ---
DATE: 04/20/2019 SUBJECTIVE: A 63-year-old female, currently in the hospital, disoriented, rambling, not making much sense, concerns about impulse control. Fair sleep, fair appetite, resting comfortably, withdrawn, keeps to self, mumbling to self. Medications were noted. We will continue inpatient monitoring. We will make appropriate medication adjustments. JOB# [id number]
--- NOTE | 2019-04-21 20:17 | Internal Medicine Prog Note ---
Internal Medicine Subjective - Subjective Service Date: 04/21/19 Patient seen and examined:: without staff (SHE IS DOING WELL) Patient is:: awake, verbal, in bed, talking, confused Per staff patient has:: no adverse event Internal Medicine Objective - Physical Exam Vitals and I&O: Vital Signs Temp 98.7 F 04/21/19 14:00 Pulse 72 04/21/19 14:00 Resp 20 04/21/19 14:00 BP 102/67 04/21/19 14:00 Pulse Ox 98 04/21/19 14:00 Intake & Output 04/21/19 04/21/19 04/22/19 06:59 18:59 06:59 Intake Total 240 1000 Balance 240 1000 Intake: Oral 240 1000 Other: # Voids 2 4 # Bowel Movements 0 1 Active Medications: Current Medications Acetaminophen (Tylenol) 650 mg PO Q4HR PRN PRN Reason: Mild Pain (1-3) Stop: 06/17/19 00:53 Acetaminophen (Tylenol) 650 mg PO Q4HR PRN PRN Reason: TEMP ABOVE 100 Stop: 06/18/19 14:22 Al Hydrox/Mg Hydrox/Simethicone (Maalox) 30 ml PO Q4HR PRN PRN Reason: GI DISTRESS Stop: 06/16/19 23:48 Divalproex Sodium (Depakote Er) 250 mg PO TID [facility] Stop: 06/18/19 08:59 Last Admin: 04/21/19 13:32 Dose: 250 mg Gabapentin (Neurontin) 100 mg PO TID [facility] Stop: 06/17/19 08:59 Last Admin: 04/21/19 13:32 Dose: 100 mg Lisinopril (Zestril) 5 mg PO DAILY [facility] Stop: 06/17/19 08:59 Last Admin: 04/21/19 08:14 Dose: 5 mg Lorazepam (Ativan) 0.5 mg PO Q4HR PRN; Protocol PRN Reason: Anxiety Stop: 05/17/19 23:48 Last Admin: 04/20/19 09:24 Dose: 0.5 mg Magnesium Hydroxide (Milk Of Magnesia) 30 ml PO HS PRN PRN Reason: Constipation Multivitamins/Vitamin C (Theragran) 1 tab PO DAILY [facility] Stop: 06/17/19 08:59 Last Admin: 04/21/19 08:13 Dose: 1 tab Quetiapine Fumarate 300 mg/ (Quetiapine Fumarate 50 mg) 350 mg PO BID [facility] Stop: 06/18/19 08:59 Last Admin: 04/21/19 16:46 Dose: 350 mg Zolpidem Tartrate (Ambien) 5 mg PO HS PRN PRN Reason: Insomnia Stop: 06/16/19 23:48 Last Admin: 04/20/19 20:38 Dose: 5 mg General: demented HEENT: NC/AT, PERRLA, EOMI, anicteric sclerae, throat clear Neck: Supple, No JVD, No thyromegaly, +2 carotid pulse wo bruit, No LAD, + JVD Lungs: CTAB Cardiovascular: RRR, Normal S1, Normal S2, without murmur Abdomen: soft, non-tender, non-distended Extremities: clear Neurological: no change, alert Internal Medicine Assmt/Plan - Assessment Assessment: 1.HTN. 2.COPD. 3.DEMENTIA. 4.BIPOLAR DISORDER - Plan Plan: CONTINUE ON CURRENT MEDICATION AND DIET Nutritional Asmnt/Malnutr-PDOC - Dietary Evaluation Malnutrition Findings (Please click <Entered> for more info): Nutritional Asmnt/Malnutrition Start: 04/18/19 14: 21 Text: Status: Complete Freq: Protocol: Document 04/18/19 14:21 THIEN (Rec: 04/18/19 14:24 THIEN [id number]) Nutritional Asmnt/Malnutrition Patient General Information Nutritional Screening High Risk Diagnosis Psychosis Pertinent Medical Hx/Surgical Hx HTN, Dementia, Osteoarthritis, Peripheral neuropathy, Dysphagia Subjective Information Pt is a 63-year-old female admitted on 04/17 d/t agitation , aggressiveness, and angry outbursts. Pt assessed as high nutritional risk d/t BMI <18.5 (16.14). Pt ate 75% breakfast and lunch today according to [employer] SWITCHBOARD OPERATOR. Pt was in the community room watching the [employer] game at time of visit. Will monitor PO intake and add supplement as necessary. Recommend adding weekly weight check, weight gain trending toward IBW preferred. Anthropometrics HT: 54 WT: 94 LB (42.73 kg) BMI: 16.14 (Underweight) GI/ Skin Integrity GI: WNL, Soft, Flat, Non- tender BM: Not Noted I/O: Not Noted Skin: WNL, Intact Tyron: 21 Diet Order: Mechanical Soft, SYED Estimated Energy Needs: ( Geriatric, CBW) 7655-0067 kcals (30-35 kcals/ kg) 50-55g Pro (1.2-1.3 g/kg) 3932-6176 ml (30-35 ml/kg) Current Diet Order/ Nutrition Support Mechanical Soft, SYED Pertinent Medications Maalox (PRN), MOM (PRN), Theragran Pertinent Labs 04/17: Glucose 103, BUN/Cr 32/1 .09, GFR 54, T Protein 3.1, Tags 227, Chol 254, LDL 136 Nutritional Hx/Data Height 1.63 m Height (Calculated Centimeters) 162.6 Current Weight (lbs) 42.638 kg Weight (Calculated Kilograms) 42.6 Weight (Calculated Grams) 97461.7 [place] Body Weight 120 LB (54.55 kg) % [place] Body Weight 78 Body Mass Index (BMI) 16.1 Weight Status Underweight GI Symptoms Skin Integrity/Comment: Skin: WNL, Intact Tyron: 21 Estimated Nutritional Goals BEE in Kcals: Using Current wt Calories/Kcals/Kg 30-35 Kcals Calculated 4507-0793 Protein: Using Current wt Protein g/k.2-1.3 Protein Calculated 50-55 Fluid: ml 6270-3121 ml (30-35 ml/kg) Nutritional Problem 1. Problem Problem Underweight Etiology r/t consistent energy underconsumption Signs/Symptoms: aeb BMI <18.5 (16.14). Malnutrition Related to Morbid Obesity Malnutrition related to morbid obesity No Intervention/Recommendation Comments 1. Continue Mechanical Soft, SYED diet as tolerated. 2. Weekly weights. 3. Nurse to offer snacks every 2 hours. Expected Outcomes/Goals Expected Outcomes/Goals 1.PO intake to continue to meet 75% of estimated nutritional needs. 2.Monitor PO intake, wt, nutrition related labs, and skin integrity. 3.Gradual weight gain, 0.5-1 LB/week, trending towards IBW. 4.F/U as high risk in 2-3 days , 04/20-04/21.
--- NOTE | 2019-04-22 08:27 | Progress Notes ---
DATE: 04/22/2019 SUBJECTIVE: The patient slept for about 9 hours. Poorly oriented, periods of confusion, aggression, outbursts when she came in. Seems to be calmer right now, mostly withdrawn, keeps to self, preoccupied with own thoughts. We will continue inpatient monitoring. MEDICATIONS: Noted. ASSESSMENT: The patient with ongoing symptoms, but seems mildly calmer. JOB# [id number]
[2019-04-22] MEDS: Multivitamin Tab PO SCH (09:12)
--- NOTE | 2019-04-22 16:51 | General Progress Note ---
Subjective - Review of Systems Service Date: 04/22/19 Subjective: resting comfortably no distress Objective - Physical Exam Vitals and I&O: Vital Signs Temp 98.0 F 04/22/19 14:54 Pulse 98 04/22/19 14:54 Resp 20 04/22/19 14:54 BP 125/73 04/22/19 14:54 Pulse Ox 94 04/22/19 14:54 Intake & Output 04/21/19 04/22/19 04/22/19 18:59 06:59 18:59 Intake Total 1000 240 Balance 1000 240 Intake: Oral 1000 240 Other: # Voids 4 1 # Bowel Movements 1 Active Medications: Current Medications Acetaminophen (Tylenol) 650 mg PO Q4HR PRN PRN Reason: Mild Pain (1-3) Stop: 06/17/19 00:53 Acetaminophen (Tylenol) 650 mg PO Q4HR PRN PRN Reason: TEMP ABOVE 100 Stop: 06/18/19 14:22 Al Hydrox/Mg Hydrox/Simethicone (Maalox) 30 ml PO Q4HR PRN PRN Reason: GI DISTRESS Stop: 06/16/19 23:48 Divalproex Sodium (Depakote Er) 250 mg PO TID [facility] Stop: 06/18/19 08:59 Last Admin: 04/22/19 14:04 Dose: 250 mg Gabapentin (Neurontin) 100 mg PO TID [facility] Stop: 06/17/19 08:59 Last Admin: 04/22/19 14:04 Dose: 100 mg Lisinopril (Zestril) 5 mg PO DAILY [facility] Stop: 06/17/19 08:59 Last Admin: 04/22/19 09:12 Dose: 5 mg Lorazepam (Ativan) 0.5 mg PO Q4HR PRN; Protocol PRN Reason: Anxiety Stop: 05/17/19 23:48 Last Admin: 04/20/19 09:24 Dose: 0.5 mg Magnesium Hydroxide (Milk Of Magnesia) 30 ml PO HS PRN PRN Reason: Constipation Multivitamins/Vitamin C (Theragran) 1 tab PO DAILY [facility] Stop: 06/17/19 08:59 Last Admin: 04/22/19 09:12 Dose: 1 tab Quetiapine Fumarate 300 mg/ (Quetiapine Fumarate 50 mg) 350 mg PO BID [facility] Stop: 06/18/19 08:59 Last Admin: 04/22/19 09:11 Dose: 350 mg Zolpidem Tartrate (Ambien) 5 mg PO HS PRN PRN Reason: Insomnia Stop: 06/16/19 23:48 Last Admin: 04/21/19 20:24 Dose: 5 mg General: Alert, No acute distress HEENT: Atraumatic, PERRLA Neck: Supple, JVD Cardiovascular: Regular rate, Normal S1, Normal S2 Lungs: Clear to auscultation Abdomen: Bowel sounds, Soft Assessment/Plan - Assessment Assessment: 1.HTN. 2.COPD. 3.DEMENTIA. 4.BIPOLAR DISORDER - Plan Plan: continue current treatment Nutritional Asmnt/Malnutr-PDOC - Dietary Evaluation Malnutrition Findings (Please click <Entered> for more info): Nutritional Asmnt/Malnutrition Start: 04/18/19 14: 21 Text: Status: Complete Freq: Protocol: Document 04/18/19 14:21 THIEN (Rec: 04/18/19 14:24 THIEN [email or web address]) Nutritional Asmnt/Malnutrition Patient General Information Nutritional Screening High Risk Diagnosis Psychosis Pertinent Medical Hx/Surgical Hx HTN, Dementia, Osteoarthritis, Peripheral neuropathy, Dysphagia Subjective Information Pt is a 63-year-old female admitted on 04/17 d/t agitation , aggressiveness, and angry outbursts. Pt assessed as high nutritional risk d/t BMI <18.5 (16.14). Pt ate 75% breakfast and lunch today according to DANCE MASTER. Pt was in the community room watching the [employer] game at time of visit. Will monitor PO intake and add supplement as necessary. Recommend adding weekly weight check, weight gain trending toward IBW preferred. Anthropometrics HT: 54 WT: 94 LB (42.73 kg) BMI: 16.14 (Underweight) GI/ Skin Integrity GI: WNL, Soft, Flat, Non- tender BM: Not Noted I/O: Not Noted Skin: WNL, Intact Tyron: 21 Diet Order: Mechanical Soft, SYED Estimated Energy Needs: ( Geriatric, CBW) 8064-1208 kcals (30-35 kcals/ kg) 50-55g Pro (1.2-1.3 g/kg) 6124-4221 ml (30-35 ml/kg) Current Diet Order/ Nutrition Support Mechanical Soft, SYED Pertinent Medications Maalox (PRN), MOM (PRN), Theragran Pertinent Labs 04/17: Glucose 103, BUN/Cr 32/1 .09, GFR 54, T Protein 3.1, Tags 227, Chol 254, LDL 136 Nutritional Hx/Data Height 1.63 m Height (Calculated Centimeters) 162.6 Current Weight (lbs) 42.638 kg Weight (Calculated Kilograms) 42.6 Weight (Calculated Grams) 59632.7 [place] Body Weight 120 LB (54.55 kg) % [place] Body Weight 78 Body Mass Index (BMI) 16.1 Weight Status Underweight GI Symptoms Skin Integrity/Comment: Skin: WNL, Intact Tyron: 21 Estimated Nutritional Goals BEE in Kcals: Using Current wt Calories/Kcals/Kg 30-35 Kcals Calculated 0321-8248 Protein: Using Current wt Protein g/k.2-1.3 Protein Calculated 50-55 Fluid: ml 8073-7017 ml (30-35 ml/kg) Nutritional Problem 1. Problem Problem Underweight Etiology r/t consistent energy underconsumption Signs/Symptoms: aeb BMI <18.5 (16.14). Malnutrition Related to Morbid Obesity Malnutrition related to morbid obesity No Intervention/Recommendation Comments 1. Continue Mechanical Soft, SYED diet as tolerated. 2. Weekly weights. 3. Nurse to offer snacks every 2 hours. Expected Outcomes/Goals Expected Outcomes/Goals 1.PO intake to continue to meet 75% of estimated nutritional needs. 2.Monitor PO intake, wt, nutrition related labs, and skin integrity. 3.Gradual weight gain, 0.5-1 LB/week, trending towards IBW. 4.F/U as high risk in 2-3 days , 04/20-04/21.
--- NOTE | 2019-04-23 07:53 | Progress Notes ---
DATE: 04/23/2019 SUBJECTIVE: The patient in the hospital, slept for 8 hours, remains calm, mostly withdrawn, keeps to self, preoccupied with own thoughts, sometimes noted to be mumbling to self, but otherwise calm, likely she may be approaching her baseline at this time. Currently on dosing of Depakote and Seroquel. No overt behavioral disturbances. Friendly on exam. PSYCHIATRIC# [id number]
[2019-04-23] MEDS: Multivitamin Tab PO SCH (09:08)
--- NOTE | 2019-04-23 10:11 | General Progress Note ---
Subjective - Review of Systems Service Date: 04/23/19 Subjective: resting comfortably no distress Objective - Physical Exam Vitals and I&O: Vital Signs Temp 98.3 F 04/23/19 06:26 Pulse 104 04/23/19 09:08 Resp 18 04/23/19 06:26 BP 120/73 04/23/19 09:08 Pulse Ox 94 04/23/19 06:26 Intake & Output 04/22/19 04/23/19 04/23/19 18:59 06:59 18:59 Intake Total 1200 360 Balance 1200 360 Intake: Oral 1200 360 Other: # Voids 4 1 # Bowel Movements 1 0 Active Medications: Current Medications Acetaminophen (Tylenol) 650 mg PO Q4HR PRN PRN Reason: Mild Pain (1-3) Stop: 06/17/19 00:53 Acetaminophen (Tylenol) 650 mg PO Q4HR PRN PRN Reason: TEMP ABOVE 100 Stop: 06/18/19 14:22 Al Hydrox/Mg Hydrox/Simethicone (Maalox) 30 ml PO Q4HR PRN PRN Reason: GI DISTRESS Stop: 06/16/19 23:48 Divalproex Sodium (Depakote Er) 250 mg PO TID [facility] Stop: 06/18/19 08:59 Last Admin: 04/23/19 09:07 Dose: 250 mg Gabapentin (Neurontin) 100 mg PO TID [facility] Stop: 06/17/19 08:59 Last Admin: 04/23/19 09:08 Dose: 100 mg Lisinopril (Zestril) 5 mg PO DAILY [facility] Stop: 06/17/19 08:59 Last Admin: 04/23/19 09:08 Dose: 5 mg Lorazepam (Ativan) 0.5 mg PO Q4HR PRN; Protocol PRN Reason: Anxiety Stop: 05/17/19 23:48 Last Admin: 04/20/19 09:24 Dose: 0.5 mg Magnesium Hydroxide (Milk Of Magnesia) 30 ml PO HS PRN PRN Reason: Constipation Multivitamins/Vitamin C (Theragran) 1 tab PO DAILY [facility] Stop: 06/17/19 08:59 Last Admin: 04/23/19 09:08 Dose: 1 tab Quetiapine Fumarate 300 mg/ (Quetiapine Fumarate 50 mg) 350 mg PO BID [facility] Stop: 06/18/19 08:59 Last Admin: 04/23/19 09:08 Dose: 350 mg Zolpidem Tartrate (Ambien) 5 mg PO HS PRN PRN Reason: Insomnia Stop: 06/16/19 23:48 Last Admin: 04/22/19 20:44 Dose: 5 mg General: Alert, No acute distress HEENT: Atraumatic, PERRLA Neck: Supple, JVD Cardiovascular: Regular rate, Normal S1, Normal S2 Lungs: Clear to auscultation Abdomen: Bowel sounds, Soft Assessment/Plan - Assessment Assessment: 1.HTN. 2.COPD. 3.DEMENTIA. 4.BIPOLAR DISORDER - Plan Plan: continue current treatment Nutritional Asmnt/Malnutr-PDOC - Dietary Evaluation Malnutrition Findings (Please click <Entered> for more info): Nutritional Asmnt/Malnutrition Start: 04/18/19 14: 21 Text: Status: Complete Freq: Protocol: Document 04/18/19 14:21 THIEN (Rec: 04/18/19 14:24 THIEN [email or web address]) Nutritional Asmnt/Malnutrition Patient General Information Nutritional Screening High Risk Diagnosis Psychosis Pertinent Medical Hx/Surgical Hx HTN, Dementia, Osteoarthritis, Peripheral neuropathy, Dysphagia Subjective Information Pt is a 63-year-old female admitted on 04/17 d/t agitation , aggressiveness, and angry outbursts. Pt assessed as high nutritional risk d/t BMI <18.5 (16.14). Pt ate 75% breakfast and lunch today according to TANKER DRIVER. Pt was in the community room watching the [employer] game at time of visit. Will monitor PO intake and add supplement as necessary. Recommend adding weekly weight check, weight gain trending toward IBW preferred. Anthropometrics HT: 54 WT: 94 LB (42.73 kg) BMI: 16.14 (Underweight) GI/ Skin Integrity GI: WNL, Soft, Flat, Non- tender BM: Not Noted I/O: Not Noted Skin: WNL, Intact Tyron: 21 Diet Order: Mechanical Soft, SYED Estimated Energy Needs: ( Geriatric, CBW) 5204-1229 kcals (30-35 kcals/ kg) 50-55g Pro (1.2-1.3 g/kg) 0521-8408 ml (30-35 ml/kg) Current Diet Order/ Nutrition Support Mechanical Soft, SYED Pertinent Medications Maalox (PRN), MOM (PRN), Theragran Pertinent Labs 04/17: Glucose 103, BUN/Cr 32/1 .09, GFR 54, T Protein 3.1, Tags 227, Chol 254, LDL 136 Nutritional Hx/Data Height 1.63 m Height (Calculated Centimeters) 162.6 Current Weight (lbs) 42.638 kg Weight (Calculated Kilograms) 42.6 Weight (Calculated Grams) 80672.7 [place] Body Weight 120 LB (54.55 kg) % [place] Body Weight 78 Body Mass Index (BMI) 16.1 Weight Status Underweight GI Symptoms Skin Integrity/Comment: Skin: WNL, Intact Tyron: 21 Estimated Nutritional Goals BEE in Kcals: Using Current wt Calories/Kcals/Kg 30-35 Kcals Calculated 1577-7734 Protein: Using Current wt Protein g/k.2-1.3 Protein Calculated 50-55 Fluid: ml 9098-6351 ml (30-35 ml/kg) Nutritional Problem 1. Problem Problem Underweight Etiology r/t consistent energy underconsumption Signs/Symptoms: aeb BMI <18.5 (16.14). Malnutrition Related to Morbid Obesity Malnutrition related to morbid obesity No Intervention/Recommendation Comments 1. Continue Mechanical Soft, SYED diet as tolerated. 2. Weekly weights. 3. Nurse to offer snacks every 2 hours. Expected Outcomes/Goals Expected Outcomes/Goals 1.PO intake to continue to meet 75% of estimated nutritional needs. 2.Monitor PO intake, wt, nutrition related labs, and skin integrity. 3.Gradual weight gain, 0.5-1 LB/week, trending towards IBW. 4.F/U as high risk in 2-3 days , 04/20-04/21.
[2019-04-24] MEDS: Multivitamin Tab PO SCH (08:31)
--- NOTE | 2019-04-24 14:26 | Internal Medicine Prog Note ---
Internal Medicine Subjective - Subjective Service Date: 04/24/19 Patient seen and examined:: without staff (SHE IS DOING WELL) Patient is:: awake, verbal, in bed, talking, confused Per staff patient has:: no adverse event Internal Medicine Objective - Physical Exam Vitals and I&O: Vital Signs Temp 98.0 F 04/24/19 06:40 Pulse 77 04/24/19 08:31 Resp 20 04/24/19 06:40 BP 131/78 04/24/19 08:31 Pulse Ox 93 04/24/19 06:40 Intake & Output 04/23/19 04/24/19 04/24/19 18:59 06:59 18:59 Intake Total 950 240 Balance 950 240 Intake: Oral 950 240 Other: # Voids 4 2 # Bowel Movements 1 Active Medications: Current Medications Acetaminophen (Tylenol) 650 mg PO Q4HR PRN PRN Reason: Mild Pain (1-3) Stop: 06/17/19 00:53 Acetaminophen (Tylenol) 650 mg PO Q4HR PRN PRN Reason: TEMP ABOVE 100 Stop: 06/18/19 14:22 Al Hydrox/Mg Hydrox/Simethicone (Maalox) 30 ml PO Q4HR PRN PRN Reason: GI DISTRESS Stop: 06/16/19 23:48 Divalproex Sodium (Depakote Er) 250 mg PO TID [facility] Stop: 06/18/19 08:59 Last Admin: 04/24/19 13:19 Dose: 250 mg Gabapentin (Neurontin) 100 mg PO TID [facility] Stop: 06/17/19 08:59 Last Admin: 04/24/19 13:19 Dose: 100 mg Lisinopril (Zestril) 5 mg PO DAILY [facility] Stop: 06/17/19 08:59 Last Admin: 04/24/19 08:31 Dose: 5 mg Lorazepam (Ativan) 0.5 mg PO Q4HR PRN; Protocol PRN Reason: Anxiety Stop: 05/17/19 23:48 Last Admin: 04/20/19 09:24 Dose: 0.5 mg Magnesium Hydroxide (Milk Of Magnesia) 30 ml PO HS PRN PRN Reason: Constipation Multivitamins/Vitamin C (Theragran) 1 tab PO DAILY [facility] Stop: 06/17/19 08:59 Last Admin: 04/24/19 08:31 Dose: 1 tab Quetiapine Fumarate 300 mg/ (Quetiapine Fumarate 50 mg) 350 mg PO BID [facility] Stop: 06/18/19 08:59 Last Admin: 04/24/19 08:31 Dose: 350 mg Zolpidem Tartrate (Ambien) 5 mg PO HS PRN PRN Reason: Insomnia Stop: 06/16/19 23:48 Last Admin: 04/22/19 20:44 Dose: 5 mg General: demented HEENT: NC/AT, PERRLA, EOMI, anicteric sclerae, throat clear Neck: Supple, No JVD, No thyromegaly, +2 carotid pulse wo bruit, No LAD, + JVD Lungs: CTAB Cardiovascular: RRR, Normal S1, Normal S2, without murmur Abdomen: soft, non-tender, non-distended Extremities: clear Neurological: no change, alert Internal Medicine Assmt/Plan - Assessment Assessment: 1.HTN. 2.COPD. 3.DEMENTIA. 4.BIPOLAR DISORDER - Plan Plan: CONTINUE ON CURRENT MEDICATION AND DIET Nutritional Asmnt/Malnutr-PDOC - Dietary Evaluation Malnutrition Findings (Please click <Entered> for more info): Nutritional Asmnt/Malnutrition Start: 04/18/19 14: 21 Text: Status: Complete Freq: Protocol: Document 04/18/19 14:21 THIEN (Rec: 04/18/19 14:24 THIEN [email or web address]) Nutritional Asmnt/Malnutrition Patient General Information Nutritional Screening High Risk Diagnosis Psychosis Pertinent Medical Hx/Surgical Hx HTN, Dementia, Osteoarthritis, Peripheral neuropathy, Dysphagia Subjective Information Pt is a 63-year-old female admitted on 04/17 d/t agitation , aggressiveness, and angry outbursts. Pt assessed as high nutritional risk d/t BMI <18.5 (16.14). Pt ate 75% breakfast and lunch today according to PROOF READER. Pt was in the community room watching the [employer] game at time of visit. Will monitor PO intake and add supplement as necessary. Recommend adding weekly weight check, weight gain trending toward IBW preferred. Anthropometrics HT: 54 WT: 94 LB (42.73 kg) BMI: 16.14 (Underweight) GI/ Skin Integrity GI: WNL, Soft, Flat, Non- tender BM: Not Noted I/O: Not Noted Skin: WNL, Intact Tyron: 21 Diet Order: Mechanical Soft, SYED Estimated Energy Needs: ( Geriatric, CBW) 5000-2246 kcals (30-35 kcals/ kg) 50-55g Pro (1.2-1.3 g/kg) 7420-1342 ml (30-35 ml/kg) Current Diet Order/ Nutrition Support Mechanical Soft, SYED Pertinent Medications Maalox (PRN), MOM (PRN), Theragran Pertinent Labs 04/17: Glucose 103, BUN/Cr 32/1 .09, GFR 54, T Protein 3.1, Tags 227, Chol 254, LDL 136 Nutritional Hx/Data Height 1.63 m Height (Calculated Centimeters) 162.6 Current Weight (lbs) 42.638 kg Weight (Calculated Kilograms) 42.6 Weight (Calculated Grams) 22136.7 [place] Body Weight 120 LB (54.55 kg) % [place] Body Weight 78 Body Mass Index (BMI) 16.1 Weight Status Underweight GI Symptoms Skin Integrity/Comment: Skin: WNL, Intact Tyron: 21 Estimated Nutritional Goals BEE in Kcals: Using Current wt Calories/Kcals/Kg 30-35 Kcals Calculated 4766-7383 Protein: Using Current wt Protein g/k.2-1.3 Protein Calculated 50-55 Fluid: ml 2763-5336 ml (30-35 ml/kg) Nutritional Problem 1. Problem Problem Underweight Etiology r/t consistent energy underconsumption Signs/Symptoms: aeb BMI <18.5 (16.14). Malnutrition Related to Morbid Obesity Malnutrition related to morbid obesity No Intervention/Recommendation Comments 1. Continue Mechanical Soft, SYED diet as tolerated. 2. Weekly weights. 3. Nurse to offer snacks every 2 hours. Expected Outcomes/Goals Expected Outcomes/Goals 1.PO intake to continue to meet 75% of estimated nutritional needs. 2.Monitor PO intake, wt, nutrition related labs, and skin integrity. 3.Gradual weight gain, 0.5-1 LB/week, trending towards IBW. 4.F/U as high risk in 2-3 days , 04/20-04/21.
--- NOTE | 2019-04-24 15:15 | Progress Notes ---
DATE: 04/24/2019 Case was discussed with staff of the patient, reviewed records. The patient continues to be confused, internally preoccupied. Unable to make sense, unable to tell me the date. She is unpredictable, impulsive, and needing redirection. I will be checking her Depakote level. We will continue outpatient group therapy, milieu therapy, and adjust medications as needed. JOB# [id number]
[2019-04-25] MEDS: Multivitamin Tab PO SCH (08:33)
--- NOTE | 2019-04-25 19:26 | Internal Medicine Prog Note ---
Internal Medicine Subjective - Subjective Service Date: 04/25/19 Patient seen and examined:: without staff (SHE IS DOING GOOD) Patient is:: awake, verbal, in bed, talking, confused Per staff patient has:: no adverse event Internal Medicine Objective - Physical Exam Vitals and I&O: Vital Signs Temp 98.0 F 04/25/19 14:00 Pulse 88 04/25/19 14:00 Resp 18 04/25/19 14:00 BP 118/85 04/25/19 14:00 Pulse Ox 96 04/25/19 14:00 Intake & Output 04/25/19 04/25/19 04/26/19 06:59 18:59 06:59 Intake Total 240 750 Balance 240 750 Intake: Oral 240 750 Other: # Voids 2 Active Medications: Current Medications Acetaminophen (Tylenol) 650 mg PO Q4HR PRN PRN Reason: Mild Pain (1-3) Stop: 06/17/19 00:53 Acetaminophen (Tylenol) 650 mg PO Q4HR PRN PRN Reason: TEMP ABOVE 100 Stop: 06/18/19 14:22 Al Hydrox/Mg Hydrox/Simethicone (Maalox) 30 ml PO Q4HR PRN PRN Reason: GI DISTRESS Stop: 06/16/19 23:48 Divalproex Sodium (Depakote Er) 250 mg PO TID [facility] Stop: 06/18/19 08:59 Last Admin: 04/25/19 13:07 Dose: 250 mg Gabapentin (Neurontin) 100 mg PO TID [facility] Stop: 06/17/19 08:59 Last Admin: 04/25/19 13:07 Dose: 100 mg Lisinopril (Zestril) 5 mg PO DAILY [facility] Stop: 06/17/19 08:59 Last Admin: 04/25/19 08:33 Dose: 5 mg Lorazepam (Ativan) 0.5 mg PO Q4HR PRN; Protocol PRN Reason: Anxiety Stop: 05/17/19 23:48 Last Admin: 04/20/19 09:24 Dose: 0.5 mg Magnesium Hydroxide (Milk Of Magnesia) 30 ml PO HS PRN PRN Reason: Constipation Multivitamins/Vitamin C (Theragran) 1 tab PO DAILY [facility] Stop: 06/17/19 08:59 Last Admin: 04/25/19 08:33 Dose: 1 tab Quetiapine Fumarate 300 mg/ (Quetiapine Fumarate 50 mg) 350 mg PO BID [facility] Stop: 06/18/19 08:59 Last Admin: 04/25/19 16:14 Dose: 350 mg Zolpidem Tartrate (Ambien) 5 mg PO HS PRN PRN Reason: Insomnia Stop: 06/16/19 23:48 Last Admin: 04/24/19 21:26 Dose: 5 mg General: demented HEENT: NC/AT, PERRLA, EOMI, anicteric sclerae, throat clear Neck: Supple, No JVD, No thyromegaly, +2 carotid pulse wo bruit, No LAD, + JVD Lungs: CTAB Cardiovascular: RRR, Normal S1, Normal S2, without murmur Abdomen: soft, non-tender, non-distended Extremities: clear Neurological: no change, alert Internal Medicine Assmt/Plan - Assessment Assessment: 1.HTN. 2.COPD. 3.DEMENTIA. 4.BIPOLAR DISORDER - Plan Plan: CONTINUE ON CURRENT MEDICATION AND DIET Nutritional Asmnt/Malnutr-PDOC - Dietary Evaluation Malnutrition Findings (Please click <Entered> for more info): Nutritional Asmnt/Malnutrition Start: 04/18/19 14: 21 Text: Status: Complete Freq: Protocol: Document 04/18/19 14:21 THIEN (Rec: 04/18/19 14:24 THIEN [email or web address]) Nutritional Asmnt/Malnutrition Patient General Information Nutritional Screening High Risk Diagnosis Psychosis Pertinent Medical Hx/Surgical Hx HTN, Dementia, Osteoarthritis, Peripheral neuropathy, Dysphagia Subjective Information Pt is a 63-year-old female admitted on 04/17 d/t agitation , aggressiveness, and angry outbursts. Pt assessed as high nutritional risk d/t BMI <18.5 (16.14). Pt ate 75% breakfast and lunch today according to VENEER STACKER. Pt was in the community room watching the [employer] game at time of visit. Will monitor PO intake and add supplement as necessary. Recommend adding weekly weight check, weight gain trending toward IBW preferred. Anthropometrics HT: 54 WT: 94 LB (42.73 kg) BMI: 16.14 (Underweight) GI/ Skin Integrity GI: WNL, Soft, Flat, Non- tender BM: Not Noted I/O: Not Noted Skin: WNL, Intact Tyron: 21 Diet Order: Mechanical Soft, SYED Estimated Energy Needs: ( Geriatric, CBW) 9729-8966 kcals (30-35 kcals/ kg) 50-55g Pro (1.2-1.3 g/kg) 8617-0854 ml (30-35 ml/kg) Current Diet Order/ Nutrition Support Mechanical Soft, SYED Pertinent Medications Maalox (PRN), MOM (PRN), Theragran Pertinent Labs 04/17: Glucose 103, BUN/Cr 32/1 .09, GFR 54, T Protein 3.1, Tags 227, Chol 254, LDL 136 Nutritional Hx/Data Height 1.63 m Height (Calculated Centimeters) 162.6 Current Weight (lbs) 42.638 kg Weight (Calculated Kilograms) 42.6 Weight (Calculated Grams) 47140.7 [place] Body Weight 120 LB (54.55 kg) % [place] Body Weight 78 Body Mass Index (BMI) 16.1 Weight Status Underweight GI Symptoms Skin Integrity/Comment: Skin: WNL, Intact Tyron: 21 Estimated Nutritional Goals BEE in Kcals: Using Current wt Calories/Kcals/Kg 30-35 Kcals Calculated 7588-1035 Protein: Using Current wt Protein g/k.2-1.3 Protein Calculated 50-55 Fluid: ml 1470-7669 ml (30-35 ml/kg) Nutritional Problem 1. Problem Problem Underweight Etiology r/t consistent energy underconsumption Signs/Symptoms: aeb BMI <18.5 (16.14). Malnutrition Related to Morbid Obesity Malnutrition related to morbid obesity No Intervention/Recommendation Comments 1. Continue Mechanical Soft, SYED diet as tolerated. 2. Weekly weights. 3. Nurse to offer snacks every 2 hours. Expected Outcomes/Goals Expected Outcomes/Goals 1.PO intake to continue to meet 75% of estimated nutritional needs. 2.Monitor PO intake, wt, nutrition related labs, and skin integrity. 3.Gradual weight gain, 0.5-1 LB/week, trending towards IBW. 4.F/U as high risk in 2-3 days , 04/20-04/21.
--- NOTE | 2019-04-25 22:41 | Progress Notes ---
DATE: 04/25/2019 Case was discussed with staff of the patient, reviewed records. The patient continues to have poor insight unable tell me the date, where she is, why she is here, demented, gets irritable, needing redirection. Continues to be unable to make safe plan for self-care. No side effects of the medication, no sedation, no nausea, no extrapyramidal symptoms and waiting for Depakote level. We will continue outpatient group therapy, milieu therapy, and adjust the medications as needed. JOB# [id number]
[2019-04-26] MEDS: Multivitamin Tab PO SCH (08:21)
--- NOTE | 2019-04-26 21:23 | Internal Medicine Prog Note ---
Internal Medicine Subjective - Subjective Service Date: 04/26/19 Patient seen and examined:: without staff (SHE IS CONFUSED) Patient is:: awake, verbal, in bed, talking, confused Per staff patient has:: no adverse event Internal Medicine Objective - Physical Exam Vitals and I&O: Vital Signs Temp 97.9 F 04/26/19 20:51 Pulse 79 04/26/19 20:51 Resp 20 04/26/19 20:51 BP 109/55 04/26/19 20:51 Pulse Ox 99 04/26/19 20:51 Intake & Output 04/26/19 04/26/19 04/27/19 06:59 18:59 06:59 Intake Total 120 Balance 120 Intake: Oral 120 Other: # Voids 2 2 # Bowel Movements 0 Active Medications: Current Medications Acetaminophen (Tylenol) 650 mg PO Q4HR PRN PRN Reason: Mild Pain (1-3) Stop: 06/17/19 00:53 Acetaminophen (Tylenol) 650 mg PO Q4HR PRN PRN Reason: TEMP ABOVE 100 Stop: 06/18/19 14:22 Al Hydrox/Mg Hydrox/Simethicone (Maalox) 30 ml PO Q4HR PRN PRN Reason: GI DISTRESS Stop: 06/16/19 23:48 Divalproex Sodium (Depakote Er) 250 mg PO TID [facility] Stop: 06/18/19 08:59 Last Admin: 04/26/19 21:00 Dose: 250 mg Gabapentin (Neurontin) 100 mg PO TID [facility] Stop: 06/17/19 08:59 Last Admin: 04/26/19 21:00 Dose: 100 mg Lisinopril (Zestril) 5 mg PO DAILY [facility] Stop: 06/17/19 08:59 Last Admin: 04/26/19 08:21 Dose: 5 mg Lorazepam (Ativan) 0.5 mg PO Q4HR PRN; Protocol PRN Reason: Anxiety Stop: 05/17/19 23:48 Last Admin: 04/20/19 09:24 Dose: 0.5 mg Magnesium Hydroxide (Milk Of Magnesia) 30 ml PO HS PRN PRN Reason: Constipation Multivitamins/Vitamin C (Theragran) 1 tab PO DAILY [facility] Stop: 06/17/19 08:59 Last Admin: 04/26/19 08:21 Dose: 1 tab Quetiapine Fumarate 300 mg/ (Quetiapine Fumarate 50 mg) 350 mg PO BID [facility] Stop: 06/18/19 08:59 Last Admin: 04/26/19 17:13 Dose: 350 mg Zolpidem Tartrate (Ambien) 5 mg PO HS PRN PRN Reason: Insomnia Stop: 06/16/19 23:48 Last Admin: 04/26/19 21:01 Dose: 5 mg General: demented HEENT: NC/AT, PERRLA, EOMI, anicteric sclerae, throat clear Neck: Supple, No JVD, No thyromegaly, +2 carotid pulse wo bruit, No LAD, + JVD Lungs: CTAB Cardiovascular: RRR, Normal S1, Normal S2, without murmur Abdomen: soft, non-tender, non-distended Extremities: clear Neurological: no change, alert Internal Medicine Assmt/Plan - Assessment Assessment: 1.HTN. 2.COPD. 3.DEMENTIA. 4.BIPOLAR DISORDER - Plan Plan: CONTINUE ON CURRENT MEDICATION AND DIET Nutritional Asmnt/Malnutr-PDOC - Dietary Evaluation Malnutrition Findings (Please click <Entered> for more info): Nutritional Asmnt/Malnutrition Start: 04/18/19 14: 21 Text: Status: Complete Freq: Protocol: Document 04/18/19 14:21 THIEN (Rec: 04/18/19 14:24 THIEN [email or web address]) Nutritional Asmnt/Malnutrition Patient General Information Nutritional Screening High Risk Diagnosis Psychosis Pertinent Medical Hx/Surgical Hx HTN, Dementia, Osteoarthritis, Peripheral neuropathy, Dysphagia Subjective Information Pt is a 63-year-old female admitted on 04/17 d/t agitation , aggressiveness, and angry outbursts. Pt assessed as high nutritional risk d/t BMI <18.5 (16.14). Pt ate 75% breakfast and lunch today according to COUNTRY SALES MANAGER. Pt was in the community room watching the [employer] game at time of visit. Will monitor PO intake and add supplement as necessary. Recommend adding weekly weight check, weight gain trending toward IBW preferred. Anthropometrics HT: 54 WT: 94 LB (42.73 kg) BMI: 16.14 (Underweight) GI/ Skin Integrity GI: WNL, Soft, Flat, Non- tender BM: Not Noted I/O: Not Noted Skin: WNL, Intact Tyron: 21 Diet Order: Mechanical Soft, SYED Estimated Energy Needs: ( Geriatric, CBW) 4722-4066 kcals (30-35 kcals/ kg) 50-55g Pro (1.2-1.3 g/kg) 2634-9010 ml (30-35 ml/kg) Current Diet Order/ Nutrition Support Mechanical Soft, SYED Pertinent Medications Maalox (PRN), MOM (PRN), Theragran Pertinent Labs 04/17: Glucose 103, BUN/Cr 32/1 .09, GFR 54, T Protein 3.1, Tags 227, Chol 254, LDL 136 Nutritional Hx/Data Height 1.63 m Height (Calculated Centimeters) 162.6 Current Weight (lbs) 42.638 kg Weight (Calculated Kilograms) 42.6 Weight (Calculated Grams) 89646.7 [place] Body Weight 120 LB (54.55 kg) % [place] Body Weight 78 Body Mass Index (BMI) 16.1 Weight Status Underweight GI Symptoms Skin Integrity/Comment: Skin: WNL, Intact Tyron: 21 Estimated Nutritional Goals BEE in Kcals: Using Current wt Calories/Kcals/Kg 30-35 Kcals Calculated 5221-0218 Protein: Using Current wt Protein g/k.2-1.3 Protein Calculated 50-55 Fluid: ml 8124-1545 ml (30-35 ml/kg) Nutritional Problem 1. Problem Problem Underweight Etiology r/t consistent energy underconsumption Signs/Symptoms: aeb BMI <18.5 (16.14). Malnutrition Related to Morbid Obesity Malnutrition related to morbid obesity No Intervention/Recommendation Comments 1. Continue Mechanical Soft, SYED diet as tolerated. 2. Weekly weights. 3. Nurse to offer snacks every 2 hours. Expected Outcomes/Goals Expected Outcomes/Goals 1.PO intake to continue to meet 75% of estimated nutritional needs. 2.Monitor PO intake, wt, nutrition related labs, and skin integrity. 3.Gradual weight gain, 0.5-1 LB/week, trending towards IBW. 4.F/U as high risk in 2-3 days , 04/20-04/21.
--- NOTE | 2019-04-26 22:40 | Progress Notes ---
DATE: 04/26/2019 Case was discussed with staff of patient, reviewed records. The patient has been intrusive, confused, continues to have episodes, she is agitated. She is sleeping better, eating better. She tolerated the Depakote, it was increased to 50 mg 3 times a day and also Seroquel was increased to 350 twice a day. No side effects, no sedation, no nausea, no extrapyramidal symptoms. We will continue outpatient group therapy, milieu therapy, and adjust medication as needed. JOB# [id number]
[2019-04-27] MEDS: Multivitamin Tab PO SCH (08:44)
--- NOTE | 2019-04-27 16:04 | Progress Notes ---
DATE: 04/27/2019 Case was discussed with staff of the patient, reviewed records. The patient continues to be intrusive, continues to have poor insight, continues to be unable to make safe plan for self-care, unpredictable, impulsive, needing redirection, but sleeping better, eating better, hyperverbal at times. No side effects with the medication, no sedation, no nausea, no extrapyramidal symptoms. We will continue outpatient group therapy, milieu therapy and adjust the medications as needed JOB# [id number]
--- NOTE | 2019-04-27 20:02 | Internal Medicine Prog Note ---
Internal Medicine Subjective - Subjective Service Date: 04/27/19 Patient seen and examined:: without staff (she is doing better) Patient is:: awake, verbal, in bed, talking, confused Per staff patient has:: no adverse event Internal Medicine Objective - Physical Exam Vitals and I&O: Vital Signs Temp 97.9 F 04/27/19 14:00 Pulse 104 04/27/19 14:00 Resp 20 04/27/19 14:00 BP 108/58 04/27/19 14:00 Pulse Ox 95 04/27/19 14:00 Intake & Output 04/27/19 04/27/19 04/28/19 06:59 18:59 06:59 Intake Total 240 1200 Balance 240 1200 Intake: Oral 240 1200 Other: # Voids 2 # Bowel Movements 0 1 Active Medications: Current Medications Acetaminophen (Tylenol) 650 mg PO Q4HR PRN PRN Reason: Mild Pain (1-3) Stop: 06/17/19 00:53 Acetaminophen (Tylenol) 650 mg PO Q4HR PRN PRN Reason: TEMP ABOVE 100 Stop: 06/18/19 14:22 Al Hydrox/Mg Hydrox/Simethicone (Maalox) 30 ml PO Q4HR PRN PRN Reason: GI DISTRESS Stop: 06/16/19 23:48 Divalproex Sodium (Depakote Er) 250 mg PO TID [facility] Stop: 06/18/19 08:59 Last Admin: 04/27/19 13:14 Dose: 250 mg Gabapentin (Neurontin) 100 mg PO TID [facility] Stop: 06/17/19 08:59 Last Admin: 04/27/19 13:14 Dose: 100 mg Lisinopril (Zestril) 5 mg PO DAILY [facility] Stop: 06/17/19 08:59 Last Admin: 04/27/19 08:44 Dose: 5 mg Lorazepam (Ativan) 0.5 mg PO Q4HR PRN; Protocol PRN Reason: Anxiety Stop: 05/17/19 23:48 Last Admin: 04/20/19 09:24 Dose: 0.5 mg Magnesium Hydroxide (Milk Of Magnesia) 30 ml PO HS PRN PRN Reason: Constipation Multivitamins/Vitamin C (Theragran) 1 tab PO DAILY [facility] Stop: 06/17/19 08:59 Last Admin: 04/27/19 08:44 Dose: 1 tab Quetiapine Fumarate 300 mg/ (Quetiapine Fumarate 50 mg) 350 mg PO BID [facility] Stop: 06/18/19 08:59 Last Admin: 04/27/19 16:19 Dose: 350 mg Zolpidem Tartrate (Ambien) 5 mg PO HS PRN PRN Reason: Insomnia Stop: 06/16/19 23:48 Last Admin: 04/26/19 21:01 Dose: 5 mg General: demented HEENT: NC/AT, PERRLA, EOMI, anicteric sclerae, throat clear Neck: Supple, No JVD, No thyromegaly, +2 carotid pulse wo bruit, No LAD, + JVD Lungs: CTAB Cardiovascular: RRR, Normal S1, Normal S2, without murmur Abdomen: soft, non-tender, non-distended Extremities: clear Neurological: no change, alert Internal Medicine Assmt/Plan - Assessment Assessment: 1.HTN. 2.COPD. 3.DEMENTIA. 4.BIPOLAR DISORDER - Plan Plan: CONTINUE ON CURRENT MEDICATION AND DIET Nutritional Asmnt/Malnutr-PDOC - Dietary Evaluation Malnutrition Findings (Please click <Entered> for more info): Nutritional Asmnt/Malnutrition Start: 04/18/19 14: 21 Text: Status: Complete Freq: Protocol: Document 04/18/19 14:21 THIEN (Rec: 04/18/19 14:24 THIEN [email or web address]) Nutritional Asmnt/Malnutrition Patient General Information Nutritional Screening High Risk Diagnosis Psychosis Pertinent Medical Hx/Surgical Hx HTN, Dementia, Osteoarthritis, Peripheral neuropathy, Dysphagia Subjective Information Pt is a 63-year-old female admitted on 04/17 d/t agitation , aggressiveness, and angry outbursts. Pt assessed as high nutritional risk d/t BMI <18.5 (16.14). Pt ate 75% breakfast and lunch today according to REAL ESTATE SERVICES ADMINISTRATOR. Pt was in the community room watching the [employer] game at time of visit. Will monitor PO intake and add supplement as necessary. Recommend adding weekly weight check, weight gain trending toward IBW preferred. Anthropometrics HT: 54 WT: 94 LB (42.73 kg) BMI: 16.14 (Underweight) GI/ Skin Integrity GI: WNL, Soft, Flat, Non- tender BM: Not Noted I/O: Not Noted Skin: WNL, Intact Tyron: 21 Diet Order: Mechanical Soft, SYED Estimated Energy Needs: ( Geriatric, CBW) 6302-8191 kcals (30-35 kcals/ kg) 50-55g Pro (1.2-1.3 g/kg) 8533-8944 ml (30-35 ml/kg) Current Diet Order/ Nutrition Support Mechanical Soft, SYED Pertinent Medications Maalox (PRN), MOM (PRN), Theragran Pertinent Labs 04/17: Glucose 103, BUN/Cr 32/1 .09, GFR 54, T Protein 3.1, Tags 227, Chol 254, LDL 136 Nutritional Hx/Data Height 1.63 m Height (Calculated Centimeters) 162.6 Current Weight (lbs) 42.638 kg Weight (Calculated Kilograms) 42.6 Weight (Calculated Grams) 96185.7 [place] Body Weight 120 LB (54.55 kg) % [place] Body Weight 78 Body Mass Index (BMI) 16.1 Weight Status Underweight GI Symptoms Skin Integrity/Comment: Skin: WNL, Intact Tyron: 21 Estimated Nutritional Goals BEE in Kcals: Using Current wt Calories/Kcals/Kg 30-35 Kcals Calculated 2969-8753 Protein: Using Current wt Protein g/k.2-1.3 Protein Calculated 50-55 Fluid: ml 1304-4384 ml (30-35 ml/kg) Nutritional Problem 1. Problem Problem Underweight Etiology r/t consistent energy underconsumption Signs/Symptoms: aeb BMI <18.5 (16.14). Malnutrition Related to Morbid Obesity Malnutrition related to morbid obesity No Intervention/Recommendation Comments 1. Continue Mechanical Soft, SYED diet as tolerated. 2. Weekly weights. 3. Nurse to offer snacks every 2 hours. Expected Outcomes/Goals Expected Outcomes/Goals 1.PO intake to continue to meet 75% of estimated nutritional needs. 2.Monitor PO intake, wt, nutrition related labs, and skin integrity. 3.Gradual weight gain, 0.5-1 LB/week, trending towards IBW. 4.F/U as high risk in 2-3 days , 04/20-04/21.
[2019-04-28] MEDS: Multivitamin Tab PO SCH (08:37)
--- NOTE | 2019-04-28 13:55 | Progress Notes ---
DATE: 04/28/2019 Case was discussed with staff of the patient, reviewed records, discussed. The patient continue to be confused, intrusive, disorganized. Continues to be unable to make safe plan for self-care. Tolerating increase in Depakote and Seroquel with no side effects, no sedation, no nausea, no extrapyramidal symptoms. Continues be disheveled, disorganized, and internally preoccupied. No side effects with the medication, no sedation or nausea, no extrapyramidal syndrome. We will continue outpatient group therapy, milieu therapy, and adjust medications as needed. JOB# [id number]
--- NOTE | 2019-04-28 21:38 | Internal Medicine Prog Note ---
Internal Medicine Subjective - Subjective Service Date: 04/28/19 Patient seen and examined:: without staff (SHE IS CONFUSED) Patient is:: awake, verbal, in bed, talking, confused Per staff patient has:: no adverse event Internal Medicine Objective - Physical Exam Vitals and I&O: Vital Signs Temp 97.5 F 04/28/19 20:06 Pulse 91 04/28/19 20:06 Resp 18 04/28/19 20:06 BP 110/63 04/28/19 20:06 Pulse Ox 94 04/28/19 20:06 Intake & Output 04/28/19 04/28/19 04/29/19 06:59 18:59 06:59 Intake Total 240 1250 120 Balance 240 1250 120 Intake: Oral 240 1250 120 Other: # Voids 1 5 2 # Bowel Movements 1 0 Active Medications: Current Medications Acetaminophen (Tylenol) 650 mg PO Q4HR PRN PRN Reason: Mild Pain (1-3) Stop: 06/17/19 00:53 Acetaminophen (Tylenol) 650 mg PO Q4HR PRN PRN Reason: TEMP ABOVE 100 Stop: 06/18/19 14:22 Al Hydrox/Mg Hydrox/Simethicone (Maalox) 30 ml PO Q4HR PRN PRN Reason: GI DISTRESS Stop: 06/16/19 23:48 Divalproex Sodium (Depakote Er) 250 mg PO TID [facility] Stop: 06/18/19 08:59 Last Admin: 04/28/19 13:07 Dose: 250 mg Gabapentin (Neurontin) 100 mg PO TID [facility] Stop: 06/17/19 08:59 Last Admin: 04/28/19 13:08 Dose: 100 mg Lisinopril (Zestril) 5 mg PO DAILY [facility] Stop: 06/17/19 08:59 Last Admin: 04/28/19 08:36 Dose: 5 mg Lorazepam (Ativan) 0.5 mg PO Q4HR PRN; Protocol PRN Reason: Anxiety Stop: 05/17/19 23:48 Last Admin: 04/20/19 09:24 Dose: 0.5 mg Magnesium Hydroxide (Milk Of Magnesia) 30 ml PO HS PRN PRN Reason: Constipation Multivitamins/Vitamin C (Theragran) 1 tab PO DAILY [facility] Stop: 06/17/19 08:59 Last Admin: 04/28/19 08:37 Dose: 1 tab Quetiapine Fumarate 300 mg/ (Quetiapine Fumarate 50 mg) 350 mg PO BID [facility] Stop: 06/18/19 08:59 Last Admin: 04/28/19 16:23 Dose: 350 mg Zolpidem Tartrate (Ambien) 5 mg PO HS PRN PRN Reason: Insomnia Stop: 06/16/19 23:48 Last Admin: 04/26/19 21:01 Dose: 5 mg General: demented HEENT: NC/AT, PERRLA, EOMI, anicteric sclerae, throat clear Neck: Supple, No JVD, No thyromegaly, +2 carotid pulse wo bruit, No LAD, + JVD Lungs: CTAB Cardiovascular: RRR, Normal S1, Normal S2, without murmur Abdomen: soft, non-tender, non-distended Extremities: clear Neurological: no change, alert Internal Medicine Assmt/Plan - Assessment Assessment: 1.HTN. 2.COPD. 3.DEMENTIA. 4.BIPOLAR DISORDER - Plan Plan: CONTINUE ON CURRENT MEDICATION AND DIET Nutritional Asmnt/Malnutr-PDOC - Dietary Evaluation Malnutrition Findings (Please click <Entered> for more info): Nutritional Asmnt/Malnutrition Start: 04/18/19 14: 21 Text: Status: Complete Freq: Protocol: Document 04/18/19 14:21 THIEN (Rec: 04/18/19 14:24 THIEN [email or web address]) Nutritional Asmnt/Malnutrition Patient General Information Nutritional Screening High Risk Diagnosis Psychosis Pertinent Medical Hx/Surgical Hx HTN, Dementia, Osteoarthritis, Peripheral neuropathy, Dysphagia Subjective Information Pt is a 63-year-old female admitted on 04/17 d/t agitation , aggressiveness, and angry outbursts. Pt assessed as high nutritional risk d/t BMI <18.5 (16.14). Pt ate 75% breakfast and lunch today according to STICKER OPERATOR. Pt was in the community room watching the [employer] game at time of visit. Will monitor PO intake and add supplement as necessary. Recommend adding weekly weight check, weight gain trending toward IBW preferred. Anthropometrics HT: 54 WT: 94 LB (42.73 kg) BMI: 16.14 (Underweight) GI/ Skin Integrity GI: WNL, Soft, Flat, Non- tender BM: Not Noted I/O: Not Noted Skin: WNL, Intact Tyron: 21 Diet Order: Mechanical Soft, SYED Estimated Energy Needs: ( Geriatric, CBW) 2258-3111 kcals (30-35 kcals/ kg) 50-55g Pro (1.2-1.3 g/kg) 6657-1544 ml (30-35 ml/kg) Current Diet Order/ Nutrition Support Mechanical Soft, SYED Pertinent Medications Maalox (PRN), MOM (PRN), Theragran Pertinent Labs 04/17: Glucose 103, BUN/Cr 32/1 .09, GFR 54, T Protein 3.1, Tags 227, Chol 254, LDL 136 Nutritional Hx/Data Height 1.63 m Height (Calculated Centimeters) 162.6 Current Weight (lbs) 42.638 kg Weight (Calculated Kilograms) 42.6 Weight (Calculated Grams) 88712.7 [place] Body Weight 120 LB (54.55 kg) % [place] Body Weight 78 Body Mass Index (BMI) 16.1 Weight Status Underweight GI Symptoms Skin Integrity/Comment: Skin: WNL, Intact Tyron: 21 Estimated Nutritional Goals BEE in Kcals: Using Current wt Calories/Kcals/Kg 30-35 Kcals Calculated 5256-6818 Protein: Using Current wt Protein g/k.2-1.3 Protein Calculated 50-55 Fluid: ml 0270-9659 ml (30-35 ml/kg) Nutritional Problem 1. Problem Problem Underweight Etiology r/t consistent energy underconsumption Signs/Symptoms: aeb BMI <18.5 (16.14). Malnutrition Related to Morbid Obesity Malnutrition related to morbid obesity No Intervention/Recommendation Comments 1. Continue Mechanical Soft, SYED diet as tolerated. 2. Weekly weights. 3. Nurse to offer snacks every 2 hours. Expected Outcomes/Goals Expected Outcomes/Goals 1.PO intake to continue to meet 75% of estimated nutritional needs. 2.Monitor PO intake, wt, nutrition related labs, and skin integrity. 3.Gradual weight gain, 0.5-1 LB/week, trending towards IBW. 4.F/U as high risk in 2-3 days , 04/20-04/21.
[2019-04-29] MEDS: Multivitamin Tab PO SCH (08:45)
--- NOTE | 2019-04-29 19:33 | Progress Notes ---
DATE: Case was discussed with staff of the patient, reviewed records. The patient continues to be irritable, agitated; however, she is also confused. She continues to be unable to make safe plan for self-care. Continues to be unpredictable, impulsive, demented, confused. No side effects with the medication, no sedation, no nausea, no extrapyramidal symptoms. Her Depakote level is pending. We will continue outpatient group therapy, milieu therapy, adjust medication as needed. JOB# [id number]
--- NOTE | 2019-04-29 20:00 | Internal Medicine Prog Note ---
Internal Medicine Subjective - Subjective Service Date: 04/29/19 Patient seen and examined:: without staff (she is doing well) Patient is:: awake, verbal, in bed, talking, confused Per staff patient has:: no adverse event Internal Medicine Objective - Physical Exam Vitals and I&O: Vital Signs Temp 96.8 F 04/29/19 14:00 Pulse 92 04/29/19 14:00 Resp 20 04/29/19 14:00 BP 110/75 04/29/19 14:00 Pulse Ox 97 04/29/19 14:00 Intake & Output 04/29/19 04/29/19 04/30/19 06:59 18:59 06:59 Intake Total 180 1000 Balance 180 1000 Intake: Oral 180 1000 Other: # Voids 1 4 # Bowel Movements 0 1 Active Medications: Current Medications Acetaminophen (Tylenol) 650 mg PO Q4HR PRN PRN Reason: Mild Pain (1-3) Stop: 06/17/19 00:53 Acetaminophen (Tylenol) 650 mg PO Q4HR PRN PRN Reason: TEMP ABOVE 100 Stop: 06/18/19 14:22 Al Hydrox/Mg Hydrox/Simethicone (Maalox) 30 ml PO Q4HR PRN PRN Reason: GI DISTRESS Stop: 06/16/19 23:48 Divalproex Sodium (Depakote Er) 250 mg PO TID [facility] Stop: 06/18/19 08:59 Last Admin: 04/29/19 13:45 Dose: 250 mg Gabapentin (Neurontin) 100 mg PO TID [facility] Stop: 06/17/19 08:59 Last Admin: 04/29/19 13:45 Dose: 100 mg Lisinopril (Zestril) 5 mg PO DAILY [facility] Stop: 06/17/19 08:59 Last Admin: 04/29/19 08:45 Dose: 5 mg Lorazepam (Ativan) 0.5 mg PO Q4HR PRN; Protocol PRN Reason: Anxiety Stop: 05/17/19 23:48 Last Admin: 04/20/19 09:24 Dose: 0.5 mg Magnesium Hydroxide (Milk Of Magnesia) 30 ml PO HS PRN PRN Reason: Constipation Multivitamins/Vitamin C (Theragran) 1 tab PO DAILY [facility] Stop: 06/17/19 08:59 Last Admin: 04/29/19 08:45 Dose: 1 tab Quetiapine Fumarate 300 mg/ (Quetiapine Fumarate 50 mg) 350 mg PO BID [facility] Stop: 06/18/19 08:59 Last Admin: 04/29/19 17:10 Dose: 350 mg Zolpidem Tartrate (Ambien) 5 mg PO HS PRN PRN Reason: Insomnia Stop: 06/16/19 23:48 Last Admin: 04/26/19 21:01 Dose: 5 mg General: demented HEENT: NC/AT, PERRLA, EOMI, anicteric sclerae, throat clear Neck: Supple, No JVD, No thyromegaly, +2 carotid pulse wo bruit, No LAD, + JVD Lungs: CTAB Cardiovascular: RRR, Normal S1, Normal S2, without murmur Abdomen: soft, non-tender, non-distended Extremities: clear Neurological: no change, alert Internal Medicine Assmt/Plan - Assessment Assessment: 1.HTN. 2.COPD. 3.DEMENTIA. 4.BIPOLAR DISORDER - Plan Plan: CONTINUE ON CURRENT MEDICATION AND DIET Nutritional Asmnt/Malnutr-PDOC - Dietary Evaluation Malnutrition Findings (Please click <Entered> for more info): Nutritional Asmnt/Malnutrition Start: 04/18/19 14: 21 Text: Status: Complete Freq: Protocol: Document 04/18/19 14:21 THIEN (Rec: 04/18/19 14:24 THIEN [email or web address]) Nutritional Asmnt/Malnutrition Patient General Information Nutritional Screening High Risk Diagnosis Psychosis Pertinent Medical Hx/Surgical Hx HTN, Dementia, Osteoarthritis, Peripheral neuropathy, Dysphagia Subjective Information Pt is a 63-year-old female admitted on 04/17 d/t agitation , aggressiveness, and angry outbursts. Pt assessed as high nutritional risk d/t BMI <18.5 (16.14). Pt ate 75% breakfast and lunch today according to MECHANICAL DESIGN ENGINEER [employer]ACILITIES. Pt was in the community room watching the [employer] game at time of visit. Will monitor PO intake and add supplement as necessary. Recommend adding weekly weight check, weight gain trending toward IBW preferred. Anthropometrics HT: 54 WT: 94 LB (42.73 kg) BMI: 16.14 (Underweight) GI/ Skin Integrity GI: WNL, Soft, Flat, Non- tender BM: Not Noted I/O: Not Noted Skin: WNL, Intact Tyron: 21 Diet Order: Mechanical Soft, SYED Estimated Energy Needs: ( Geriatric, CBW) 4274-1776 kcals (30-35 kcals/ kg) 50-55g Pro (1.2-1.3 g/kg) 2374-6481 ml (30-35 ml/kg) Current Diet Order/ Nutrition Support Mechanical Soft, SYED Pertinent Medications Maalox (PRN), MOM (PRN), Theragran Pertinent Labs 04/17: Glucose 103, BUN/Cr 32/1 .09, GFR 54, T Protein 3.1, Tags 227, Chol 254, LDL 136 Nutritional Hx/Data Height 1.63 m Height (Calculated Centimeters) 162.6 Current Weight (lbs) 42.638 kg Weight (Calculated Kilograms) 42.6 Weight (Calculated Grams) 40148.7 [place] Body Weight 120 LB (54.55 kg) % [place] Body Weight 78 Body Mass Index (BMI) 16.1 Weight Status Underweight GI Symptoms Skin Integrity/Comment: Skin: WNL, Intact Tyron: 21 Estimated Nutritional Goals BEE in Kcals: Using Current wt Calories/Kcals/Kg 30-35 Kcals Calculated 2517-8703 Protein: Using Current wt Protein g/k.2-1.3 Protein Calculated 50-55 Fluid: ml 0893-9257 ml (30-35 ml/kg) Nutritional Problem 1. Problem Problem Underweight Etiology r/t consistent energy underconsumption Signs/Symptoms: aeb BMI <18.5 (16.14). Malnutrition Related to Morbid Obesity Malnutrition related to morbid obesity No Intervention/Recommendation Comments 1. Continue Mechanical Soft, SYED diet as tolerated. 2. Weekly weights. 3. Nurse to offer snacks every 2 hours. Expected Outcomes/Goals Expected Outcomes/Goals 1.PO intake to continue to meet 75% of estimated nutritional needs. 2.Monitor PO intake, wt, nutrition related labs, and skin integrity. 3.Gradual weight gain, 0.5-1 LB/week, trending towards IBW. 4.F/U as high risk in 2-3 days , 04/20-04/21.
[2019-04-30] MEDS: Multivitamin Tab PO SCH (09:06)
--- NOTE | 2019-04-30 20:20 | Progress Notes ---
DATE: 04/30/2019 SUBJECTIVE: Case was discussed with staff of the patient, reviewed records. The patient continues to be confused. She is unable to tell the date, where she is, why she is here. Her Depakote level was 67, which is within acceptable therapeutic range. No side effects with the medication, no sedation, no nausea, no extrapyramidal symptoms. We will continue outpatient group therapy, milieu therapy, and adjust medication as needed. JOB# [id number]
--- NOTE | 2019-04-30 21:10 | Internal Medicine Prog Note ---
Internal Medicine Subjective - Subjective Service Date: 04/30/19 Patient seen and examined:: without staff (SHE IS DOING WELL) Patient is:: awake, verbal, in bed, talking, confused Per staff patient has:: no adverse event Internal Medicine Objective - Physical Exam Vitals and I&O: Vital Signs Temp 97.7 F 04/30/19 20:00 Pulse 83 04/30/19 20:00 Resp 19 04/30/19 20:00 BP 129/90 04/30/19 20:00 Pulse Ox 97 04/30/19 20:00 Intake & Output 04/30/19 04/30/19 05/01/19 06:59 18:59 06:59 Intake Total 240 Balance 240 Intake: Oral 240 Other: # Voids 1 2 # Bowel Movements 0 Active Medications: Current Medications Acetaminophen (Tylenol) 650 mg PO Q4HR PRN PRN Reason: Mild Pain (1-3) Stop: 06/17/19 00:53 Acetaminophen (Tylenol) 650 mg PO Q4HR PRN PRN Reason: TEMP ABOVE 100 Stop: 06/18/19 14:22 Al Hydrox/Mg Hydrox/Simethicone (Maalox) 30 ml PO Q4HR PRN PRN Reason: GI DISTRESS Stop: 06/16/19 23:48 Divalproex Sodium (Depakote Er) 250 mg PO TID [facility] Stop: 06/18/19 08:59 Last Admin: 04/30/19 20:58 Dose: 250 mg Gabapentin (Neurontin) 100 mg PO TID [facility] Stop: 06/17/19 08:59 Last Admin: 04/30/19 20:59 Dose: 100 mg Lisinopril (Zestril) 5 mg PO DAILY [facility] Stop: 06/17/19 08:59 Last Admin: 04/30/19 09:06 Dose: 5 mg Lorazepam (Ativan) 0.5 mg PO Q4HR PRN; Protocol PRN Reason: Anxiety Stop: 05/17/19 23:48 Last Admin: 04/30/19 09:07 Dose: 0.5 mg Magnesium Hydroxide (Milk Of Magnesia) 30 ml PO HS PRN PRN Reason: Constipation Multivitamins/Vitamin C (Theragran) 1 tab PO DAILY [facility] Stop: 06/17/19 08:59 Last Admin: 04/30/19 09:06 Dose: 1 tab Quetiapine Fumarate 300 mg/ (Quetiapine Fumarate 50 mg) 350 mg PO BID [facility] Stop: 06/18/19 08:59 Last Admin: 04/30/19 17:02 Dose: 350 mg Zolpidem Tartrate (Ambien) 5 mg PO HS PRN PRN Reason: Insomnia Stop: 06/16/19 23:48 Last Admin: 04/30/19 20:59 Dose: 5 mg General: demented HEENT: NC/AT, PERRLA, EOMI, anicteric sclerae, throat clear Neck: Supple, No JVD, No thyromegaly, +2 carotid pulse wo bruit, No LAD, + JVD Lungs: CTAB Cardiovascular: RRR, Normal S1, Normal S2, without murmur Abdomen: soft, non-tender, non-distended Extremities: clear Neurological: no change, alert Internal Medicine Assmt/Plan - Assessment Assessment: 1.HTN. 2.COPD. 3.DEMENTIA. 4.BIPOLAR DISORDER - Plan Plan: CONTINUE ON CURRENT MEDICATION AND DIET Nutritional Asmnt/Malnutr-PDOC - Dietary Evaluation Malnutrition Findings (Please click <Entered> for more info): Nutritional Asmnt/Malnutrition Start: 04/18/19 14: 21 Text: Status: Complete Freq: Protocol: Document 04/18/19 14:21 THIEN (Rec: 04/18/19 14:24 THIEN [id number]) Nutritional Asmnt/Malnutrition Patient General Information Nutritional Screening High Risk Diagnosis Psychosis Pertinent Medical Hx/Surgical Hx HTN, Dementia, Osteoarthritis, Peripheral neuropathy, Dysphagia Subjective Information Pt is a 63-year-old female admitted on 04/17 d/t agitation , aggressiveness, and angry outbursts. Pt assessed as high nutritional risk d/t BMI <18.5 (16.14). Pt ate 75% breakfast and lunch today according to RADIOLOGY SUPERVISOR. Pt was in the community room watching the [place] game at time of visit. Will monitor PO intake and add supplement as necessary. Recommend adding weekly weight check, weight gain trending toward IBW preferred. Anthropometrics HT: 54 WT: 94 LB (42.73 kg) BMI: 16.14 (Underweight) GI/ Skin Integrity GI: WNL, Soft, Flat, Non- tender BM: Not Noted I/O: Not Noted Skin: WNL, Intact Tyron: 21 Diet Order: Mechanical Soft, SYED Estimated Energy Needs: ( Geriatric, CBW) 8195-9169 kcals (30-35 kcals/ kg) 50-55g Pro (1.2-1.3 g/kg) 7450-8556 ml (30-35 ml/kg) Current Diet Order/ Nutrition Support Mechanical Soft, SYED Pertinent Medications Maalox (PRN), MOM (PRN), Theragran Pertinent Labs 04/17: Glucose 103, BUN/Cr 32/1 .09, GFR 54, T Protein 3.1, Tags 227, Chol 254, LDL 136 Nutritional Hx/Data Height 1.63 m Height (Calculated Centimeters) 162.6 Current Weight (lbs) 42.638 kg Weight (Calculated Kilograms) 42.6 Weight (Calculated Grams) 15773.7 [place] Body Weight 120 LB (54.55 kg) % [place] Body Weight 78 Body Mass Index (BMI) 16.1 Weight Status Underweight GI Symptoms Skin Integrity/Comment: Skin: WNL, Intact Tyron: 21 Estimated Nutritional Goals BEE in Kcals: Using Current wt Calories/Kcals/Kg 30-35 Kcals Calculated 0460-5826 Protein: Using Current wt Protein g/k.2-1.3 Protein Calculated 50-55 Fluid: ml 8616-2113 ml (30-35 ml/kg) Nutritional Problem 1. Problem Problem Underweight Etiology r/t consistent energy underconsumption Signs/Symptoms: aeb BMI <18.5 (16.14). Malnutrition Related to Morbid Obesity Malnutrition related to morbid obesity No Intervention/Recommendation Comments 1. Continue Mechanical Soft, SYED diet as tolerated. 2. Weekly weights. 3. Nurse to offer snacks every 2 hours. Expected Outcomes/Goals Expected Outcomes/Goals 1.PO intake to continue to meet 75% of estimated nutritional needs. 2.Monitor PO intake, wt, nutrition related labs, and skin integrity. 3.Gradual weight gain, 0.5-1 LB/week, trending towards IBW. 4.F/U as high risk in 2-3 days , 04/20-04/21.
[2019-05-01] MEDS: Multivitamin Tab PO SCH (08:24)
--- NOTE | 2019-05-01 12:52 | Discharge Summary ---
DATE OF DISCHARGE: 05/01/2019 IDENTIFYING INFORMATION: The patient is a 63-year-old female. HISTORY OF PRESENT ILLNESS: The patient was sent from [facility]. The patient signed voluntary. The patient was agitated, aggressive with anger outburst with a history of bipolar disorder as well as dementia and psychosis. The patient unable to participate in meaningful conversation, confused, unable to make safe plan for self-care. COURSE IN THE HOSPITAL: The patient was started on medication, which was Depakote increased to 250 mg 3 times a day. Continue with Neurontin 100 mg 3 times a day, lisinopril, multivitamin, Seroquel was increased to 350 mg twice a day. The patient progressively got better. She was no longer acting psychotic or agitated. She was responding better to redirection. She was pleasant, cooperative, as she improved, we felt she could be discharged to a lesser level of care. The patient will be going back to [facility]. She will follow up with the psychiatrist and primary care physician there. FINAL DIAGNOSES: Bipolar disorder. MEDICAL DIAGNOSES: As per medical doctor. The patient will follow up with the psychiatrist, primary care physician, and a therapist at [facility]. EXPECTED OUTCOME: Stable, if the patient complies with the above. [facility]# [id number]
== END 2019-05-01 18:15 | DRG 885 ==
LOC: GERO 23:20
PROVIDERS: ADMIT Psychiatry & Neurology Psychiatry; ATTEND Psychiatry & Neurology Psychiatry
DX: F31.9 Bipolar disorder, unspecified (principal); F03.90 Unspecified dementia, unspecified severity, without behavioral disturbance, psychotic disturbance, mood disturbance, and anxiety; I10 Essential (primary) hypertension; J44.9 Chronic obstructive pulmonary disease, unspecified; Z79.899 Other long term (current) drug therapy
CPT/HCPCS: 83036-90; 90899; G0410; Z7610